=== PATIENT | female | born 1965 | race Caucasian/White ===

== ENCOUNTER 2016-07-21 20:21 | Inpatient (IN) | payer BC ==
[~2016-07-21] VITALS: Ht 152.4 cm; Wt 75.9 kg
[~2016-07-21 20:21] MED LIST: CALCCHW PO; CLIN1GEL29 TD; FEXO1TAB46 PO; MINO100C22 PO
[2016-07-21] MEDS ORDERED: ONDANSETRON INJ 2 MG/ML 2 ML VIAL IV STA (22:33)
[2016-07-21] MEDS ORDERED: PIPERACILLIN/TAZOBACTAM 4.5 GM/100ML D5W IV STA (22:33)
[2016-07-21] MEDS ORDERED: SODIUM CHLORIDE 0.9% 1000ML 1,000 ML IV STA ×2 (22:33)
[2016-07-21] MEDS ORDERED: ACETAMINOPHEN 500 MG TAB PO STA (22:33)
[2016-07-21] MEDS ORDERED: KETOROLAC TROMETHAMINE 30 MG/ML VIAL IV STA (22:33)
[2016-07-21] MEDS ORDERED: CEFTRIAXONE SOD INJ 2,000 MG in DEXTROSE 5% 50ML 50 ML IV STA (22:40)
[2016-07-21] MEDS ORDERED: NITR100C6 PO (23:04)
[2016-07-21 23:06] LABS: BASO % 0.2 %; BASO ABS # 0.03 K/uL (0-0.2); COMPLETE YES; EOS % 0.1 %; HEMATOCRIT 35.1 % (37-47); IG% 0.3 %; LYMPH % 10.4 %; LYMPH ABS # 1.58 K/uL (1.2-3.4); MEAN CELL VOLUME 85.2 fL (80-100); MEAN CORPUSCULAR HEMOGLOBIN 29.9 pg (25-34); MEAN PLATELET VOLUME 8.5 fL (7.4-10.4); MONO % 9.6 %; NEUT % 79.4 %; PLATELET COUNT 240 K/uL (130-400); RED BLOOD COUNT 4.12 M/uL (4.2-5.4); WHITE BLOOD COUNT 15.17 K/uL (4.8-10.8)
[2016-07-21 23:25] LABS: URINE APPEARANCE CLEAR (CLEAR); URINE BILIRUBIN NEG (NEG); URINE COLOR DK YELLOW; URINE EPITHELIAL CELL AUTO >30 /lpf (0-5); URINE NITRITE NEG (NEG); URINE PH 5.5 (4.5-7.5); URINE SPECIFIC GRAVITY 1.019 (1.000-1.030); UROBILINOGEN NEG (NEG); ZZUR CULT IF INDIC CLEAN CATCH YES
[2016-07-21 23:25] LABS: BUN/CREATININE RATIO 16.4 (10-20); CALCIUM 8.8 mg/dl (8.5-10.1); CREATININE 0.8 mg/dl (0.60-1.20); POTASSIUM 3.8 mmol/L (3.5-5.1)
[2016-07-21 23:27] LABS: MANUAL MICROSCOPIC REQUIRED? NO; REVIEW REQ? YES
[2016-07-21 23:28] LABS: ALB/GLOB RATIO 0.8 (0.9-2)
--- NOTE | 2016-07-21 23:34 | EMERGENCY ROOM VISIT NOTE ---
History Report prepared by Hesham: Madan Yang Under the Supervision of: Dr. Elier Benavides M.D. First contact with patient: 22:26 Chief Complaint: URINARY SYMPTOMS Stated Complaint: UTI SINCE 07/11, FEVER, CHILLS, BACKACHE Nursing Triage Summary: uti since june recently switched her antibiotic. now c/o chills and fever and back pain History of Present Illness The patient is a 51 year old female who presents to the Emergency Room with complaints of worsening urinary symptoms starting 07/11. The patient states that on the she had oral surgery, and the next day she was having increased urination and some pressure. She then started drinking cranberry juice, and the next day there was still more pressure, and she took some Azo pills. The patient states that she took some Cipro on 07/13, and on 07/15 she had pain in her abdomen and her back and a fever. She states that she went to urgent care, and they put her on Bactrim. She states that two nights ago she was sweating and had chills. She got a call yesterday morning form urgent care, and they told her that her microbe was resistant to Bactrim, so she was switched to a different antibiotic (Macrobid). The patient additionally states that she has cloudy urine, and she was shaking earlier today. She additionally states that she got up to do something, and she had to lay down due to being tired. She states that she has a fever, lower back pain, and nausea. She denies any vomiting. Source of History: patient Onset: 07/11 Position: other (Global) Quality: other (Urinary Symptoms) Timing: worsening Associated Symptoms: + abdominal pain, + back pain, + chills, + fevers, + nausea, No vomiting Review of Systems See HPI for pertinent positives & negatives. A total of 10 systems reviewed and were otherwise negative. Past Medical & Surgical Surgical Problems: (1) H/O tooth extraction Family History Cancer Social History Smoking Status: Never Smoker Housing Status: lives with family Occupation Status: employed Current/Historical Medications Scheduled Calcium Carbonate-Vitamin D W/ (Caltrate 600+D Plus), 1 CHW PO BID Fexofenadine Hcl (Emily), 180 MG PO DAILY Nitrofurantoin Monohyd Macro (Nitrofurantoin Monohydrat), 100 MG PO BID Allergies Coded Allergies: No Known Allergies (Verified , 06/08/02) Physical Exam Vital Signs Date Time Temp Pulse Resp B/P Pulse Ox O2 Delivery O2 Flow Rate FiO2 07/21/16 23:12 72 20 119/72 07/21/16 23:05 37.7 62 18 119/72 97 Room Air 07/21/16 20:35 38.6 79 18 120/73 99 Room Air Physical Exam GENERAL: Patient is in no acute distress. HEENT: No acute trauma, normocephalic atraumatic, mucous membranes moist, no nasal congestion, no scleral icterus. NECK: No stridor, no adenopathy, no meningismus, trachea is midline. LUNGS: Clear to auscultation bilaterally, no wheeze, no rhonchi, breath sounds equal. HEART: Without murmurs gallops or rubs, regular rate and rhythm. ABDOMEN: Soft, nontender, bowel sounds positive, no hernias, no peritonitis. BACK: Left more so than right flank discomfort with percussion. EXTREMITIES: No cyanosis or edema, full range of motion of all the joints without pain or difficulty, no signs for acute trauma. NEUROLOGIC: Oriented x 3, no acute motor or sensory deficits, no focal weakness. SKIN: No rash, no jaundice, no diaphoresis. Medical Decision & Procedures ER Provider Diagnostic Interpretation: US results as stated below per my review and radiologist interpretation: US RENAL: No hydronephrosis; bilateral ureteral jets noted. Nonspecific debris urinary bladder. Cholelithiasis. Radiologist: Corwin Bright MD Laboratory Results 07/21/16 22:54 Red Blood Count 4.12, Mean Corpuscular Volume 85.2, Mean Corpuscular Hemoglobin 29.9, Mean Corpuscular Hemoglobin Concent 35.0, Mean Platelet Volume 8.5, Neutrophils (%) (Auto) 79.4, Lymphocytes (%) (Auto) 10.4, Monocytes (%) (Auto) 9.6, Eosinophils (%) (Auto) 0.1, Basophils (%) (Auto) 0.2, Neutrophils # (Auto) 12.04, Lymphocytes # (Auto) 1.58, Monocytes # (Auto) 1.46, Eosinophils # (Auto) 0.02, Basophils # (Auto) 0.03 07/21/16 22:54 Test 07/21/16 22:50 07/21/16 22:54 Urine Color DK YELLOW Urine Appearance CLEAR (CLEAR) Urine pH 5.5 (4.5-7.5) Urine Specific [place] 1.019 (1.000-1.030) Urine Protein 2+ (NEG) Urine Glucose (UA) NEG (NEG) Urine Ketones 1+ (NEG) Urine Occult Blood 2+ (NEG) Urine Nitrite NEG (NEG) Urine Bilirubin NEG (NEG) Urine Urobilinogen NEG (NEG) Urine Leukocyte Esterase MODERATE (NEG) Urine WBC (Auto) >30 /hpf (0-5) Urine RBC (Auto) 10-30 /hpf (0-4) Urine Hyaline Casts (Auto) 10-30 /lpf (0-5) Urine Epithelial Cells (Auto) >30 /lpf (0-5) Urine Bacteria (Auto) NEG (NEG) Urine Renal Epithelial Cells /lpf (0-5) White Blood Count 15.17 K/uL (4.8-10.8) Red Blood Count 4.12 M/uL (4.2-5.4) Hemoglobin 12.3 g/dL (12.0-16.0) Hematocrit 35.1 % (37-47) Mean Corpuscular Volume 85.2 fL (80-100) Mean Corpuscular Hemoglobin 29.9 pg (25-34) Mean Corpuscular Hemoglobin Concent 35.0 g/dl (32-36) Platelet Count 240 K/uL (130-400) Mean Platelet Volume 8.5 fL (7.4-10.4) Neutrophils (%) (Auto) 79.4 % Lymphocytes (%) (Auto) 10.4 % Monocytes (%) (Auto) 9.6 % Eosinophils (%) (Auto) 0.1 % Basophils (%) (Auto) 0.2 % Neutrophils # (Auto) 12.04 K/uL (1.4-6.5) Lymphocytes # (Auto) 1.58 K/uL (1.2-3.4) Monocytes # (Auto) 1.46 K/uL (0.11-0.59) Eosinophils # (Auto) 0.02 K/uL (0-0.5) Basophils # (Auto) 0.03 K/uL (0-0.2) RDW Standard Deviation 36.7 fL (36.4-46.3) RDW Coefficient of Variation 11.8 % (11.5-14.5) Immature Granulocyte % (Auto) 0.3 % Immature Granulocyte # (Auto) 0.04 K/uL (0.00-0.02) Anion Gap 8.0 mmol/L (3-11) Est Creatinine Clear Calc Drug Dose 76.2 ml/min Estimated GFR () 97.6 Estimated GFR (Non- 84.2 BUN/Creatinine Ratio 16.4 (10-20) Lactic Acid Level 0.8 mmol/L (0.4-2.0) Calcium Level 8.8 mg/dl (8.5-10.1) Total Bilirubin 0.5 mg/dl (0.2-1) Aspartate Amino Transf (AST/SGOT) 37 U/L (15-37) Alanine Aminotransferase (ALT/SGPT) 45 U/L (12-78) Alkaline Phosphatase 109 U/L (45-117) Total Protein 6.9 gm/dl (6.4-8.2) Albumin 3.1 gm/dl (3.4-5.0) Globulin 3.8 gm/dl (2.5-4.0) Albumin/Globulin Ratio 0.8 (0.9-2) Laboratory results reviewed by me. Culture results collected 07/16 and resulted 07/18: Organism: Escherichia Coli (A) Ampicillin Resistant Ampicillin/Sulbactam Resistant Cefepime Susceptible Ceftriaxone Susceptible Ciprofloxacin Resistant Gentamicin Susceptible Levofloxacin Resistant Nitrofurantoin Susceptible Piperacillin Tazobactam Resistant Trimeth-Sulfamethoxazole Resistant Medications Administered Medications (Trade) Dose Ordered Sig/Jose Route Start Time Stop Time Status Last Admin Dose Admin Ondansetron HCl 4 mg 4 mg NOW STAT IV 07/21/16 22:33 07/21/16 22:37 DC 07/21/16 23:03 4 MG Sodium Chloride 1,000 ml @ 999 mls/hr Q1H1M STAT IV 07/21/16 22:33 07/21/16 23:33 DC 07/21/16 23:04 999 MLS/HR Sodium Chloride (Nss 1000ml) 1,000 ml @ 200 mls/hr Q5H STAT IV 07/21/16 22:33 07/22/16 03:32 07/21/16 23:04 200 MLS/HR Ketorolac Tromethamine (Toradol Inj) 30 mg NOW STAT IV 07/21/16 22:33 07/21/16 22:37 DC 07/21/16 23:04 30 MG Acetaminophen 1000 mg 1,000 mg NOW STAT PO 07/21/16 22:33 07/21/16 22:37 DC 07/21/16 23:03 1,000 MG Ceftriaxone Sodium/Dextrose (Rocephin Inj/D5 50ml) 70 ml @ 100 mls/hr ONE STAT IV 07/21/16 22:40 07/21/16 23:21 DC 07/21/16 23:04 100 MLS/HR ED Course 2226: The patient was evaluated in room C10. A complete history and physical exam was performed. 2233: Tylenol Tab 1000mg PO, Toradol Inj 30mg IV, Sodium Chloride 1000 ml @ 200 mls/hr IV, Sodium Chloride 1000 ml @ 999 mls/hr IV, Zofran Inj 4mg IV 2240: Ceftriaxone Sodium 2000mg/ Dextrose 70 ml @ 100mls/hr IV 0011: I discussed the patient's case with Dr. Gerard. He is going to evaluate the patient for further treatment. 0018: I reevaluated the patient, and I discussed the treatment plan. Medical Decision The patient is a 51 year old female who presents to the ED with complaints of urinary symptoms. Differential diagnoses considered include pyelonephritis, failed outpatient treatment, renal stone, dehydration, electrolyte imbalance, renal failure, pneumonia, diverticulitis. There is a moderate leukocytosis which would be consistent with infection. No concerning anemia. No significant electrolyte abnormality or kidney failure. There is no hepatitis. Urinalysis does show evidence for infection, urine culture is pending. Lactic acid level is not elevated making sepsis less likely. Renal ultrasound shows healthy kidneys, no hydronephrosis. There was some debris seen in the bladder. I reviewed the patient's urine culture results from last week, she had a fairly resistant organism (E Coli) by the sensitivity results. The patient received IV saline, IV Zofran, IV Toradol and IV ceftriaxone. She is doing well. She was given oral Tylenol for her fever. The patient requires admission/observation. She has resistant pyelonephritis and has failed outpatient treatment. She has been on 3 different antibiotics. I spoke to the patient and case management. The on-call hospitalist was consulted. Consults Time Called: [id number] Consulting Physician: Dr. Adhikari Returned Call: [phone] I discussed the patient's case with Dr. Gerard. He is going to evaluate the patient for further treatment. Impression Primary Impression: Pyelonephritis Additional Impression: Failure of outpatient treatment Scribe Attestation The scribe's documentation has been prepared under my direction and personally reviewed by me in its entirety. I confirm that the note above accurately reflects all work, treatment, procedures, and medical decision making performed by me. Departure Information Dispostion Being Evaluated By Hospitalist Referrals Theo Bowling M.D. (PCP) Patient Instructions [facility] Problem Qualifiers
[2016-07-22] VITALS (8 sets, daily range): BP systolic 92–137; BP diastolic 60–77; PULSE 58–87; TEMP 36.8–39.4; O2SAT 95–98; Ht 152.4 cm; Wt 75.9 kg
[2016-07-22] MEDS ORDERED: ZOLPIDEM TARTRATE 5 MG TAB PO PRN (00:30)
[2016-07-22] MEDS ORDERED: ONDANSETRON INJ 2 MG/ML 2 ML VIAL IV PRN (00:30)
[2016-07-22] MEDS ORDERED: PIPERACILLIN/TAZOBACTAM 4.5 GM/100ML D5W ONE (01:51)
[2016-07-22] MEDS ORDERED: NSS+KCL 20 MEQ 1000ML ONE (01:52)
[2016-07-22] MEDS ORDERED: TRAMADOL HCL 50 MG TAB ONE (02:05)
[2016-07-22] MEDS ORDERED: MoRPHine SULFATE 4 MG/ML 1 ML CARP\\VIAL IV PRN (03:30)
[2016-07-22] MEDS ORDERED: HYDROCODONE/ACETAMOPHEN 5/325MG TAB PO PRN (03:30)
[2016-07-22] MEDS ORDERED: TRAMADOL HCL 50 MG TAB PO PRN (03:30)
[2016-07-22] MEDS ORDERED: MoRPHine SULFATE 2 MG/ML CARP IV PRN (03:30)
--- NOTE | 2016-07-22 05:01 | History and Physical ---
History & Physical Date & Time of Service: Jul 22, 2016 at 04:43. The patient was admitted on July 21, 2016. Chief Complaint: Failure Of Op Treatment, Pyelonephritis Primary Care Physician: Theo Bowling M.D. History of Present Illness Source: patient, friend The patient is a 51-year-old female who underwent uneventful oral surgery on July 10. However, the next day she began to have increased urination and bladder pressure. She initially tried cranberry juice, and then the next day [id number] Azo pills. She then started Cipro on July 13, and on July 15 developed pain in her abdomen and back, and a fever. She then went to see urgent care, was started on Bactrim, and then received a call yesterday morning that the bacteria was resistant to Bactrim and she was started on Macrobid. She reports that today her urine has become more cloudy, developed shakes earlier in the day, and per her friend became more lethargic and much more fatigued than usual. Because of worsening symptoms, she presents emergency department for assessment, is considered as a failure of outpatient treatment, and was then referred for evaluation for admission. Family History Cancer Social History Smoking Status: Never Smoker Smokeless Tobacco Use: No Alcohol Use: none Drug Use: none Marital Status: single Housing status: lives alone Occupational Status: employed Multi-Drug Resistant Organisms History of MDRO: No Allergies Coded Allergies: No Known Allergies (Verified , 06/08/02) Home Medications Scheduled Calcium Carbonate-Vitamin D W/ (Caltrate 600+D Plus), 1 CHW PO BID Fexofenadine Hcl (Emily), 180 MG PO DAILY Nitrofurantoin Monohyd Macro (Nitrofurantoin Monohydrat), 100 MG PO BID Review of Systems The patient denies chest pain, palpitations, shortness of breath, cough, lower extremity swelling, vision change, hearing change, sore throat, weight change, fatigue, nausea, vomiting, abdominal pain, pelvic pain, blood in urine or stool , lightheadedness, dizziness, headache, memory loss, rash, abnormal bruising or bleeding, imbalance, focal or generalized weakness, numbness or tingling in arms or legs, arthralgias or myalgias, neck pain, night sweats, or allergy symptoms. The review of systems is otherwise negative other than for that already noted above, and at least 10 systems have been reviewed. Physical Exam Vital Signs Date Time Temp Pulse Resp B/P Pulse Ox O2 Delivery O2 Flow Rate FiO2 07/22/16 03:25 36.8 58 16 93/61 97 Room Air 07/22/16 02:12 37.7 72 20 119/72 97 07/21/16 23:12 72 20 119/72 07/21/16 23:05 37.7 62 18 119/72 97 Room Air 07/21/16 20:35 38.6 79 18 120/73 99 Room Air The patient is awake, well-developed and adequately nourished, alert and oriented 3, normocephalic and atraumatic, lying in bed and in no acute distress. HEENT--PERRL, EOMI, mucous membranes and oropharynx dry. Neck--supple, no JVD or bruits, thyroid normal, trachea midline, no adenopathy. Heart--normal S1 and S2, no extra beats, no murmurs, rubs or gallops. Lungs--clear bilaterally with good air movement, no respiratory distress, no accessory muscle use. Abdomen--normal bowel sounds and soft, nontender and nondistended, no hernias or masses, no organomegaly. Extremities--no cyanosis, clubbing or edema. There are good distal pulses b/l. Dermatologic--normal skin turgor, normal color, warm and dry, no abnormal lymph nodes, no rash. Neurologic--cranial nerves II through XII grossly intact, motor and sensory examination normal. Rheumatologic--normal range of motion, nontender, muscles and joints. Psychiatric--normal affect. Diagnostics Laboratory Results Results Past 24 Hours Test 07/21/16 22:50 07/21/16 22:54 Range/Units Urine Color DK YELLOW Urine Appearance CLEAR CLEAR Urine pH 5.5 4.5-7.5 Urine Specific [place] 1.019 1.000-1.030 Urine Protein 2+ NEG Urine Glucose (UA) NEG NEG Urine Ketones 1+ NEG Urine Occult Blood 2+ NEG Urine Nitrite NEG NEG Urine Bilirubin NEG NEG Urine Urobilinogen NEG NEG Urine Leukocyte Esterase MODERATE NEG Urine WBC (Auto) >30 0-5 /hpf Urine RBC (Auto) 10-30 0-4 /hpf Urine Hyaline Casts (Auto) 10-30 0-5 /lpf Urine Epithelial Cells (Auto) >30 0-5 /lpf Urine Bacteria (Auto) NEG NEG Urine Renal Epithelial Cells 0-5 /lpf White Blood Count 15.17 4.8-10.8 K/uL Red Blood Count 4.12 4.2-5.4 M/uL Hemoglobin 12.3 12.0-16.0 g/dL Hematocrit 35.1 37-47 % Mean Corpuscular Volume 85.2 80-100 fL Mean Corpuscular Hemoglobin 29.9 25-34 pg Mean Corpuscular Hemoglobin Concent 35.0 32-36 g/dl Platelet Count 240 130-400 K/uL Mean Platelet Volume 8.5 7.4-10.4 fL Neutrophils (%) (Auto) 79.4 % Lymphocytes (%) (Auto) 10.4 % Monocytes (%) (Auto) 9.6 % Eosinophils (%) (Auto) 0.1 % Basophils (%) (Auto) 0.2 % Neutrophils # (Auto) 12.04 1.4-6.5 K/uL Lymphocytes # (Auto) 1.58 1.2-3.4 K/uL Monocytes # (Auto) 1.46 0.11-0.59 K/uL Eosinophils # (Auto) 0.02 0-0.5 K/uL Basophils # (Auto) 0.03 0-0.2 K/uL RDW Standard Deviation 36.7 36.4-46.3 fL RDW Coefficient of Variation 11.8 11.5-14.5 % Immature Granulocyte % (Auto) 0.3 % Immature Granulocyte # (Auto) 0.04 0.00-0.02 K/uL Sodium Level 138 136-145 mmol/L Potassium Level 3.8 3.5-5.1 mmol/L Chloride Level 103 98-107 mmol/L Carbon Dioxide Level 27 21-32 mmol/L Anion Gap 8.0 3-11 mmol/L Blood Urea Nitrogen 13 7-18 mg/dl Creatinine 0.80 0.60-1.20 mg/dl Est Creatinine Clear Calc Drug Dose 76.2 ml/min Estimated GFR () 97.6 Estimated GFR (Non- 84.2 BUN/Creatinine Ratio 16.4 10-20 Random Glucose 132 70-99 mg/dl Lactic Acid Level 0.8 0.4-2.0 mmol/L Calcium Level 8.8 8.5-10.1 mg/dl Total Bilirubin 0.5 0.2-1 mg/dl Aspartate Amino Transf (AST/SGOT) 37 15-37 U/L Alanine Aminotransferase (ALT/SGPT) 45 12-78 U/L Alkaline Phosphatase 109 45-117 U/L Total Protein 6.9 6.4-8.2 gm/dl Albumin 3.1 3.4-5.0 gm/dl Globulin 3.8 2.5-4.0 gm/dl Albumin/Globulin Ratio 0.8 0.9-2 Microbiology Results 07/21/16 Urine Culture, Received Pending Impression Assessment and Plan Escherichia coli pyelonephritis/failure of outpatient treatment--the patient will be admitted to the medical floor. She has been started on ceftriaxone in the emergency department, and this will be continued at 1 g IV daily. Continue rehydration but change to normal saline with KCl 20 mEq at 125 ML's per hour. The bacteria is resistant to: Ampicillin, Unasyn, Cipro, levofloxacin, Zosyn and Bactrim. The bacteria is sensitive to: Cefepime, ceftriaxone, gentamicin and nitrofurantoin. Suspect she may ultimately be able to be discharged on cefuroxime 250 mg by mouth twice a day. Seasonal allergy--continue fexofenadine 180 mg by mouth daily. Level of Care Med/Surg Advanced Directives Existing Advance Directive: No Existing Living Will: No Existing Power of Psychologist Counseling: No Resuscitation Status FULL RESUSCITATION VTE Prophylaxis VTE Risk Assessment Done? Y/N: Yes Risk Level: Moderate Given or contraindicated: SCD's Social Service Consult None Apply
[2016-07-22] MEDS: HYDROCODONE/ACETAMOPHEN 5/325MG TAB PO PRN ×3 (05:51→09:13)
--- NOTE | 2016-07-22 06:35 | DIAGNOSTIC IMAGING REPORT ---
EXAMINATION: RENAL ULTRASOUND CLINICAL HISTORY: FLANK PAIN COMPARISON STUDY: None FINDINGS: The right kidney measures 11.3 cm. The left kidney measures 14.4 cm. There is no evidence of hydronephrosis. There is a prominent column of Jonny on the left. There is equivocal minimal debris within the bladder. Bilateral ureteral jets were visualized. Incidental note is made of cholelithiasis. IMPRESSION : 1. Cholelithiasis 2. No renal masses identified. No evidence of hydronephrosis. 3. Minimal debris within the bladder Electronically signed by: Tao Coreas M.D. 07/22/2016 6:34 AM Dictated Date/Time: 07/22/2016 6:32 AM
[2016-07-22] MEDS: FEXOFENADINE HCL 180 MG TAB PO SCH (09:11)
[2016-07-22] MEDS: NSS + 20MEQ KCL 1000ML 1,000 ML IV SCH ×3 (11:41→19:53)
--- NOTE | 2016-07-22 12:31 | Hospitalist Progress Note ---
Hospitalist Progress Note Date of Service Jul 22, 2016. Subjective Pt evaluation today including: conversation w/ patient, physical exam, chart review, lab review, review of studies, review of inpatient medication list Voiding: no voiding problems, no incontinence Patient states she is feeling better since admission. +bladder fullness. + bilateral flank pain, L>R. +nausea. Patient denies any fever, chills, sweats, lightheadedness, dizziness, vision changes, CP, palpitations, edema, SOB, wheezing, cough, abdominal pain, vomiting, diarrhea, melena, numbness/tingling, weakness, muscle/joint pain, anxiety/depression, active bleeding, or new skin discoloration/changes. Medications Current Inpatient Medications Medications (Trade) Dose Ordered Sig/Jose Route Start Time Stop Time Status Last Admin Dose Admin Acetaminophen (Tylenol Tab) 650 mg Q4H PRN PO 07/22/16 00:30 08/21/16 00:29 Zolpidem Tartrate (Ambien Tab) 5 mg HSZ PRN PO 07/22/16 00:30 08/21/16 00:29 Fexofenadine HCl (Emily Tab) 180 mg DAILY PO 07/22/16 09:00 08/21/16 08:59 07/22/16 09:11 180 MG Ondansetron HCl 4 mg 4 mg Q6H PRN IV 07/22/16 00:30 08/21/16 00:29 Potassium Chloride/Sodium Chloride 1,000 ml @ 100 mls/hr Q10H IV 07/22/16 05:00 08/21/16 04:59 07/22/16 11:41 100 MLS/HR Ceftriaxone Sodium/Dextrose (Rocephin Inj/ Dextrose Add-[place] 50ML) 50 ml @ 100 mls/hr Q24H IV 07/22/16 23:00 07/31/16 22:59 Acetaminophen/ Hydrocodone Bitart ([place] 5/325 Tab) 1 tab Q6H PRN PO 07/22/16 03:30 08/05/16 03:29 07/22/16 09:13 1 TAB Acetaminophen/ Hydrocodone Bitart ([place] 5/325 Tab) 2 tab Q6H PRN PO 07/22/16 03:30 08/05/16 03:29 Morphine Sulfate (MoRPHine SULFATE INJ) 2 mg Q2H PRN IV 07/22/16 03:30 08/05/16 03:29 Morphine Sulfate (MoRPHine SULFATE INJ) 4 mg Q2H PRN IV 07/22/16 03:30 08/05/16 03:29 Tramadol HCl ([place] Tab) 50 mg Q4H PRN PO 07/22/16 03:30 08/21/16 03:29 Tramadol HCl (Ultram Tab) 100 mg Q4H PRN PO 07/22/16 03:30 08/21/16 03:29 Objective Vital Signs Date Time Temp Pulse Resp B/P Pulse Ox O2 Delivery O2 Flow Rate FiO2 07/22/16 11:13 96 Room Air 07/22/16 10:30 Room Air 07/22/16 07:55 37.0 65 14 92/60 96 Room Air 07/22/16 03:25 36.8 58 16 93/61 97 Room Air 07/22/16 02:12 37.7 72 20 119/72 97 07/21/16 23:12 72 20 119/72 07/21/16 23:05 37.7 62 18 119/72 97 Room Air 07/21/16 20:35 38.6 79 18 120/73 99 Room Air Physical Exam General Appearance: no apparent distress Eyes: normal inspection, PERRL ENT: hearing grossly normal Neck: supple Respiratory/Chest: lungs clear, no respiratory distress, no accessory muscle use Cardiovascular: regular rate, rhythm Abdomen: normal bowel sounds, soft, + tenderness (suprapubic ttp ) Extremities: no pedal edema, no calf tenderness Neurologic/Psychiatric: alert, normal mood/affect, oriented x 3 Skin: normal color, warm/dry, no rash Laboratory Results Last 24 Hours Test 07/21/16 22:50 07/21/16 22:54 Urine Color DK YELLOW Urine Appearance CLEAR Urine pH 5.5 Urine Specific [place] 1.019 Urine Protein 2+ Urine Glucose (UA) NEG Urine Ketones 1+ Urine Occult Blood 2+ Urine Nitrite NEG Urine Bilirubin NEG Urine Urobilinogen NEG Urine Leukocyte Esterase MODERATE Urine WBC (Auto) >30 /hpf Urine RBC (Auto) 10-30 /hpf Urine Hyaline Casts (Auto) 10-30 /lpf Urine Epithelial Cells (Auto) >30 /lpf Urine Bacteria (Auto) NEG Urine Renal Epithelial Cells /lpf White Blood Count 15.17 K/uL Red Blood Count 4.12 M/uL Hemoglobin 12.3 g/dL Hematocrit 35.1 % Mean Corpuscular Volume 85.2 fL Mean Corpuscular Hemoglobin 29.9 pg Mean Corpuscular Hemoglobin Concent 35.0 g/dl Platelet Count 240 K/uL Mean Platelet Volume 8.5 fL Neutrophils (%) (Auto) 79.4 % Lymphocytes (%) (Auto) 10.4 % Monocytes (%) (Auto) 9.6 % Eosinophils (%) (Auto) 0.1 % Basophils (%) (Auto) 0.2 % Neutrophils # (Auto) 12.04 K/uL Lymphocytes # (Auto) 1.58 K/uL Monocytes # (Auto) 1.46 K/uL Eosinophils # (Auto) 0.02 K/uL Basophils # (Auto) 0.03 K/uL RDW Standard Deviation 36.7 fL RDW Coefficient of Variation 11.8 % Immature Granulocyte % (Auto) 0.3 % Immature Granulocyte # (Auto) 0.04 K/uL Sodium Level 138 mmol/L Potassium Level 3.8 mmol/L Chloride Level 103 mmol/L Carbon Dioxide Level 27 mmol/L Anion Gap 8.0 mmol/L Blood Urea Nitrogen 13 mg/dl Creatinine 0.80 mg/dl Est Creatinine Clear Calc Drug Dose 76.2 ml/min Estimated GFR () 97.6 Estimated GFR (Non- 84.2 BUN/Creatinine Ratio 16.4 Random Glucose 132 mg/dl Lactic Acid Level 0.8 mmol/L Calcium Level 8.8 mg/dl Total Bilirubin 0.5 mg/dl Aspartate Amino Transf (AST/SGOT) 37 U/L Alanine Aminotransferase (ALT/SGPT) 45 U/L Alkaline Phosphatase 109 U/L Total Protein 6.9 gm/dl Albumin 3.1 gm/dl Globulin 3.8 gm/dl Albumin/Globulin Ratio 0.8 Assessment and Plan The patient is a 51-year-old female who underwent uneventful oral surgery on July 10. However, the next day she began to have increased urination and bladder pressure. She initially tried cranberry juice, and then the next day [id number] Azo pills. She then started Cipro on July 13, and on July 15 developed pain in her abdomen and back, and a fever. She then went to see urgent care, was started on Bactrim, and then received a call yesterday morning that the bacteria was resistant to Bactrim and she was started on Macrobid. She reports that today her urine has become more cloudy, developed shakes earlier in the day, and per her friend became more lethargic and much more fatigued than usual. Because of worsening symptoms, she presents emergency department for assessment, is considered as a failure of outpatient treatment, and was then referred for evaluation for admission. Escherichia coli pyelonephritis/failure of outpatient treatment: - Admit to med/surg - IV Rocephin. IV Zosyn x1 dose - Tramadol, [place], and Morphine PRN for pain control - IV NSS + 20 mEq KCL @ 125 ml/hr - U/A dirty, UCx pending -- Urgent care UCx: 1. Bacteria is resistant to: Ampicillin, Unasyn, Cipro, levofloxacin, Zosyn and Bactrim 2. Bacteria is sensitive to: Cefepime, ceftriaxone, gentamicin and nitrofurantoin - Renal US- Cholelithiasis. No renal masses identified. No evidence of hydronephrosis. Minimal debris within the bladder Seasonal allergy: Continue Fexofenadine 180 mg PO daily GI Prophylaxis: IV Zofran PRN DVT prophylaxis: Ambulation, TEDs and SCDs Code Status: LEVEL I, FULL Dispo: Discharge to home once medically stable. Hopefully w/in the next 1-2 days
[2016-07-22] MEDS: ACETAMINOPHEN 325 MG TAB PO PRN ×2 (15:26→21:11)
[2016-07-22] MEDS: CEFTRIAXONE SOD INJ 1 GM in DEXTROSE 5% ADD-VANTAGE 50ML 50 ML IV SCH (23:02)
[2016-07-23] MEDS: NSS + 20MEQ KCL 1000ML 1,000 ML IV SCH ×3 (03:55→20:08)
[2016-07-23] MEDS: ACETAMINOPHEN 325 MG TAB PO PRN ×3 (04:44→23:07)
[2016-07-23 07:39] VITALS: BP 114/81; PULSE 63; TEMP 37.1; O2SAT 93
[2016-07-23 07:46] LABS: BASO % 0.2 %; BASO ABS # 0.02 K/uL (0-0.2); COMPLETE YES; EOS % 0.8 %; HEMATOCRIT 33.5 % (37-47); IG% 0.2 %; LYMPH % 26.2 %; MEAN CELL VOLUME 87.5 fL (80-100); MEAN CORPUSCULAR HEMOGLOBIN 29.8 pg (25-34); MEAN PLATELET VOLUME 8.7 fL (7.4-10.4); NEUT % 64.6 %; PLATELET COUNT 269 K/uL (130-400); RED BLOOD COUNT 3.83 M/uL (4.2-5.4); WHITE BLOOD COUNT 8.79 K/uL (4.8-10.8)
[2016-07-23 08:18] LABS: BUN/CREATININE RATIO 12.8 (10-20); CALCIUM 8.9 mg/dl (8.5-10.1); CREATININE 0.74 mg/dl (0.60-1.20); MAGNESIUM 2.2 mg/dl (1.8-2.4); POTASSIUM 4.1 mmol/L (3.5-5.1)
[2016-07-23] MEDS: FEXOFENADINE HCL 180 MG TAB PO SCH (09:16)
[2016-07-23] MEDS ORDERED: TRAMADOL HCL 50 MG TAB PO PRN (10:45)
--- NOTE | 2016-07-23 12:50 | Hospitalist Progress Note ---
Hospitalist Progress Note Date of Service Jul 23, 2016. Subjective Pt evaluation today including: conversation w/ patient, physical exam, chart review, lab review, review of inpatient medication list Voiding: no voiding problems, no incontinence +bladder fullness. +bilateral flank pain- non-worsening; moderate control w/ Tylenol, [place] is making her feel very nauseous, Discussed trying Tramadol + Zofran for better pain control. She is eating and drinking OK. Patient denies any fever, chills, sweats, lightheadedness, dizziness, vision changes, CP, palpitations, edema, SOB, wheezing, cough, abdominal pain, nausea, vomiting, diarrhea, urinary symptoms, melena, numbness/tingling, weakness, muscle/joint pain, anxiety/depression, active bleeding, or new skin discoloration/changes. Medications Current Inpatient Medications Medications (Trade) Dose Ordered Sig/Jose Route Start Time Stop Time Status Last Admin Dose Admin Acetaminophen (Tylenol Tab) 650 mg Q4H PRN PO 07/22/16 00:30 08/21/16 00:29 07/23/16 09:18 650 MG Zolpidem Tartrate (Ambien Tab) 5 mg HSZ PRN PO 07/22/16 00:30 08/21/16 00:29 07/22/16 23:02 5 MG Fexofenadine HCl (Emily Tab) 180 mg DAILY PO 07/22/16 09:00 08/21/16 08:59 07/23/16 09:16 180 MG Ondansetron HCl 4 mg 4 mg Q6H PRN IV 07/22/16 00:30 08/21/16 00:29 07/22/16 13:52 4 MG Potassium Chloride/Sodium Chloride 1,000 ml @ 125 mls/hr Q8H IV 07/22/16 05:00 08/21/16 04:59 07/23/16 11:53 125 MLS/HR Ceftriaxone Sodium/Dextrose (Rocephin Inj/ Dextrose Add-[place] 50ML) 50 ml @ 100 mls/hr Q24H IV 07/22/16 23:00 07/31/16 22:59 07/22/16 23:02 100 MLS/HR Acetaminophen/ Hydrocodone Bitart ([place] 5/325 Tab) 1 tab Q6H PRN PO 07/22/16 03:30 08/05/16 03:29 07/22/16 09:13 1 TAB Acetaminophen/ Hydrocodone Bitart ([place] 5/325 Tab) 2 tab Q6H PRN PO 07/22/16 03:30 08/05/16 03:29 Morphine Sulfate (MoRPHine SULFATE INJ) 2 mg Q2H PRN IV 07/22/16 03:30 08/05/16 03:29 Morphine Sulfate (MoRPHine SULFATE INJ) 4 mg Q2H PRN IV 07/22/16 03:30 08/05/16 03:29 Tramadol HCl (Ultram Tab) 50 mg Q4H PRN PO 07/22/16 03:30 08/21/16 03:29 Tramadol HCl (Ultram Tab) 100 mg Q4H PRN PO 07/22/16 03:30 08/21/16 03:29 Objective Vital Signs Date Time Temp Pulse Resp B/P Pulse Ox O2 Delivery O2 Flow Rate FiO2 07/23/16 09:41 Room Air 07/23/16 07:39 37.1 63 17 114/81 93 Room Air 07/22/16 22:57 37.1 81 16 101/68 95 Room Air 07/22/16 20:00 Room Air 07/22/16 16:36 38.7 07/22/16 15:16 39.4 87 18 137/77 95 Room Air 07/22/16 13:32 37.2 Physical Exam General Appearance: no apparent distress Eyes: normal inspection, PERRL ENT: hearing grossly normal Neck: supple Respiratory/Chest: lungs clear, no respiratory distress, no accessory muscle use Cardiovascular: regular rate, rhythm Abdomen: normal bowel sounds, soft, + tenderness (suprapubic tenderness to palpation ), + pertinent finding (+CVA tenderness ) Extremities: no pedal edema, no calf tenderness Neurologic/Psychiatric: alert, normal mood/affect, oriented x 3 Skin: normal color, warm/dry, no rash Laboratory Results Last 24 Hours Test 07/23/16 07:35 White Blood Count 8.79 K/uL Red Blood Count 3.83 M/uL Hemoglobin 11.4 g/dL Hematocrit 33.5 % Mean Corpuscular Volume 87.5 fL Mean Corpuscular Hemoglobin 29.8 pg Mean Corpuscular Hemoglobin Concent 34.0 g/dl Platelet Count 269 K/uL Mean Platelet Volume 8.7 fL Neutrophils (%) (Auto) 64.6 % Lymphocytes (%) (Auto) 26.2 % Monocytes (%) (Auto) 8.0 % Eosinophils (%) (Auto) 0.8 % Basophils (%) (Auto) 0.2 % Neutrophils # (Auto) 5.68 K/uL Lymphocytes # (Auto) 2.30 K/uL Monocytes # (Auto) 0.70 K/uL Eosinophils # (Auto) 0.07 K/uL Basophils # (Auto) 0.02 K/uL RDW Standard Deviation 38.4 fL RDW Coefficient of Variation 12.0 % Immature Granulocyte % (Auto) 0.2 % Immature Granulocyte # (Auto) 0.02 K/uL Sodium Level 140 mmol/L Potassium Level 4.1 mmol/L Chloride Level 107 mmol/L Carbon Dioxide Level 27 mmol/L Anion Gap 6.0 mmol/L Blood Urea Nitrogen 10 mg/dl Creatinine 0.74 mg/dl Est Creatinine Clear Calc Drug Dose 80.0 ml/min Estimated GFR () 107.2 Estimated GFR (Non- 92.5 BUN/Creatinine Ratio 12.8 Random Glucose 88 mg/dl Calcium Level 8.9 mg/dl Magnesium Level 2.2 mg/dl Hepatitis C Antibody NEG Assessment and Plan The patient is a 51-year-old female who underwent uneventful oral surgery on July 10. However, the next day she began to have increased urination and bladder pressure. She initially tried cranberry juice, and then the next day [id number] Azo pills. She then started Cipro on July 13, and on July 15 developed pain in her abdomen and back, and a fever. She then went to see urgent care, was started on Bactrim, and then received a call yesterday morning that the bacteria was resistant to Bactrim and she was started on Macrobid. She reports that today her urine has become more cloudy, developed shakes earlier in the day, and per her friend became more lethargic and much more fatigued than usual. Because of worsening symptoms, she presents emergency department for assessment, is considered as a failure of outpatient treatment, and was then referred for evaluation for admission. Escherichia coli pyelonephritis/failure of outpatient treatment: - Admit to med/surg - IV Rocephin. IV Zosyn x1 dose - Tramadol, [place], and Morphine PRN for pain control - IV NSS + 20 mEq KCL @ 125 ml/hr - U/A dirty, UCx pending -- Urgent care UCx: 1. Bacteria is resistant to: Ampicillin, Unasyn, Cipro, levofloxacin, Zosyn and Bactrim 2. Bacteria is sensitive to: Cefepime, ceftriaxone, gentamicin and nitrofurantoin - Renal US- Cholelithiasis. No renal masses identified. No evidence of hydronephrosis. Minimal debris within the bladder Seasonal allergy: Continue Fexofenadine 180 mg PO daily GI Prophylaxis: IV Zofran PRN DVT prophylaxis: Ambulation, TEDs and SCDs Code Status: LEVEL I, FULL Dispo: - Discharge to home once medically stable. - Hopefully w/in the next 1-2 days; continue IV antibiotic today due to spiking fevers, hopeful transition to PO tomorrow, w/ discharge tomorrow or Wednesday
[2016-07-23] MEDS: TRAMADOL HCL 50 MG TAB PO PRN ×2 (14:43→15:46)
[2016-07-23 15:18] VITALS: BP 123/86; PULSE 49; TEMP 37; O2SAT 97
[2016-07-23 22:53] VITALS: BP 120/83; PULSE 66; TEMP 37.4; O2SAT 94
[2016-07-23] MEDS: CEFTRIAXONE SOD INJ 1 GM in DEXTROSE 5% ADD-VANTAGE 50ML 50 ML IV SCH (23:02)
[2016-07-24] MEDS: NSS + 20MEQ KCL 1000ML 1,000 ML IV SCH (03:40)
[2016-07-24 06:44] LABS: BASO % 0.6 %; BASO ABS # 0.05 K/uL (0-0.2); COMPLETE YES; HEMATOCRIT 31.9 % (37-47); IG% 0.3 %; LYMPH % 33.3 %; LYMPH ABS # 2.66 K/uL (1.2-3.4); MEAN CELL VOLUME 85.3 fL (80-100); MEAN CORPUSCULAR HEMOGLOBIN 29.7 pg (25-34); MEAN CORPUSCULAR HGB CONC 34.8 g/dl (32-36); MEAN PLATELET VOLUME 8.3 fL (7.4-10.4); NEUT % 56.8 %; PLATELET COUNT 267 K/uL (130-400); RED BLOOD COUNT 3.74 M/uL (4.2-5.4); WHITE BLOOD COUNT 7.98 K/uL (4.8-10.8)
[2016-07-24 06:58] VITALS: BP 143/90; PULSE 61; TEMP 37; O2SAT 96
[2016-07-24] MEDS: TRAMADOL HCL 50 MG TAB PO PRN ×3 (07:01→19:23)
[2016-07-24 07:28] LABS: BUN/CREATININE RATIO 12.8 (10-20); CALCIUM 8.8 mg/dl (8.5-10.1); CREATININE 0.64 mg/dl (0.60-1.20); MAGNESIUM 2.1 mg/dl (1.8-2.4); POTASSIUM 4.1 mmol/L (3.5-5.1)
[2016-07-24] MEDS: FEXOFENADINE HCL 180 MG TAB PO SCH (10:02)
[2016-07-24] MEDS ORDERED: CEFUROXIME AXETIL 250 MG TAB PO ONE (10:15)
--- NOTE | 2016-07-24 11:00 | Hospitalist Progress Note ---
Hospitalist Progress Note Date of Service Jul 24, 2016. Subjective Pt evaluation today including: conversation w/ patient, physical exam, chart review, lab review, review of inpatient medication list Voiding: no voiding problems, no incontinence Patient states she is feeling 55% better. Bladder fullness has resolved. Bilateral flank pain continues to improve, increased w/ movement- controlled well with Tramadol. She is eating and drinking OK. Patient denies any fever, chills, sweats, lightheadedness, dizziness, vision changes, CP, palpitations, edema, SOB, wheezing, cough, abdominal pain, nausea, vomiting, diarrhea, urinary symptoms, melena, numbness/tingling, weakness, muscle/joint pain, anxiety/depression, active bleeding, or new skin discoloration/changes. Medications Current Inpatient Medications Medications (Trade) Dose Ordered Sig/Jose Route Start Time Stop Time Status Last Admin Dose Admin Acetaminophen (Tylenol Tab) 650 mg Q4H PRN PO 07/22/16 00:30 08/21/16 00:29 07/23/16 23:07 650 MG Zolpidem Tartrate (Ambien Tab) 5 mg HSZ PRN PO 07/22/16 00:30 08/21/16 00:29 07/22/16 23:02 5 MG Fexofenadine HCl (Emily Tab) 180 mg DAILY PO 07/22/16 09:00 08/21/16 08:59 07/24/16 10:02 180 MG Ondansetron HCl (Zofran Inj) 4 mg Q6H PRN IV 07/22/16 00:30 08/21/16 00:29 07/22/16 13:52 4 MG Acetaminophen/ Hydrocodone Bitart ([place] 5/325 Tab) 1 tab Q6H PRN PO 07/22/16 03:30 08/05/16 03:29 07/22/16 09:13 1 TAB Acetaminophen/ Hydrocodone Bitart ([place] 5/325 Tab) 2 tab Q6H PRN PO 07/22/16 03:30 08/05/16 03:29 Morphine Sulfate (MoRPHine SULFATE INJ) 2 mg Q2H PRN IV 07/22/16 03:30 08/05/16 03:29 Morphine Sulfate (MoRPHine SULFATE INJ) 4 mg Q2H PRN IV 07/22/16 03:30 08/05/16 03:29 Tramadol HCl (Ultram Tab) 50 mg Q4H PRN PO 07/22/16 03:30 08/21/16 03:29 07/24/16 07:01 50 MG Tramadol HCl (Ultram Tab) 100 mg Q4H PRN PO 07/22/16 03:30 08/21/16 03:29 Cefuroxime Axetil (Ceftin Tab) 250 mg BID PO 07/24/16 21:00 08/01/16 20:59 Objective Vital Signs Date Time Temp Pulse Resp B/P Pulse Ox O2 Delivery O2 Flow Rate FiO2 07/24/16 07:38 Room Air 07/24/16 06:58 37.0 61 16 143/90 96 Room Air 07/23/16 22:53 37.4 66 16 120/83 94 Room Air 07/23/16 19:15 Room Air 07/23/16 15:18 37.0 49 18 123/86 97 Room Air Physical Exam General Appearance: no apparent distress Eyes: normal inspection, PERRL ENT: hearing grossly normal Neck: supple Respiratory/Chest: lungs clear, no respiratory distress, no accessory muscle use Cardiovascular: regular rate, rhythm Abdomen: normal bowel sounds, non tender, soft Extremities: no pedal edema, no calf tenderness Neurologic/Psychiatric: alert, normal mood/affect, oriented x 3 Skin: normal color, warm/dry, no rash Laboratory Results Last 24 Hours Test 07/24/16 06:25 White Blood Count 7.98 K/uL Red Blood Count 3.74 M/uL Hemoglobin 11.1 g/dL Hematocrit 31.9 % Mean Corpuscular Volume 85.3 fL Mean Corpuscular Hemoglobin 29.7 pg Mean Corpuscular Hemoglobin Concent 34.8 g/dl Platelet Count 267 K/uL Mean Platelet Volume 8.3 fL Neutrophils (%) (Auto) 56.8 % Lymphocytes (%) (Auto) 33.3 % Monocytes (%) (Auto) 7.0 % Eosinophils (%) (Auto) 2.0 % Basophils (%) (Auto) 0.6 % Neutrophils # (Auto) 4.53 K/uL Lymphocytes # (Auto) 2.66 K/uL Monocytes # (Auto) 0.56 K/uL Eosinophils # (Auto) 0.16 K/uL Basophils # (Auto) 0.05 K/uL RDW Standard Deviation 36.8 fL RDW Coefficient of Variation 11.7 % Immature Granulocyte % (Auto) 0.3 % Immature Granulocyte # (Auto) 0.02 K/uL Sodium Level 141 mmol/L Potassium Level 4.1 mmol/L Chloride Level 107 mmol/L Carbon Dioxide Level 28 mmol/L Anion Gap 6.0 mmol/L Blood Urea Nitrogen 8 mg/dl Creatinine 0.64 mg/dl Est Creatinine Clear Calc Drug Dose 92.5 ml/min Estimated GFR () 118.1 Estimated GFR (Non- 101.9 BUN/Creatinine Ratio 12.8 Random Glucose 83 mg/dl Calcium Level 8.8 mg/dl Magnesium Level 2.1 mg/dl Assessment and Plan The patient is a 51-year-old female who underwent uneventful oral surgery on July 10. However, the next day she began to have increased urination and bladder pressure. She initially tried cranberry juice, and then the next day [id number] Azo pills. She then started Cipro on July 13, and on July 15 developed pain in her abdomen and back, and a fever. She then went to see urgent care, was started on Bactrim, and then received a call yesterday morning that the bacteria was resistant to Bactrim and she was started on Macrobid. She reports that today her urine has become more cloudy, developed shakes earlier in the day, and per her friend became more lethargic and much more fatigued than usual. Because of worsening symptoms, she presents emergency department for assessment, is considered as a failure of outpatient treatment, and was then referred for evaluation for admission. Escherichia coli pyelonephritis/failure of outpatient treatment: - Admit to med/surg - IV Rocephin x2 doses. IV Zosyn x1 dose -- d/c'd IV antibiotics and started Ceftin 250 mg PO BID on 07/24 x10 days--> last day of treatment on 07/31 - Tramadol, [place], and Morphine PRN for pain control - Treated w/ IV NSS + 20 mEq KCL @ 125 ml/hr x7 bags - U/A dirty, UCx- 3 organisms all at low counts, likely normal avery -- Urgent care UCx: 1. Bacteria is resistant to: Ampicillin, Unasyn, Cipro, levofloxacin, Zosyn and Bactrim 2. Bacteria is sensitive to: Cefepime, ceftriaxone, gentamicin and nitrofurantoin - Renal US- Cholelithiasis. No renal masses identified. No evidence of hydronephrosis. Minimal debris within the bladder Seasonal allergy: Continue Fexofenadine 180 mg PO daily GI Prophylaxis: IV Zofran PRN DVT prophylaxis: Ambulation, TEDs and SCDs Code Status: LEVEL I, FULL Dispo: - Discharge to home once medically stable, hopefully tomorrow (07/25)
[2016-07-24] MEDS: ACETAMINOPHEN 325 MG TAB PO PRN ×2 (12:08→21:04)
[2016-07-24] MEDS ORDERED: NURSING VERBAL MED ORDER ONE (13:15)
[2016-07-24] MEDS: ONDANSETRON 4 MG TAB PO PRN (13:30)
[2016-07-24 15:17] VITALS: BP 123/81; PULSE 59; TEMP 37.1; O2SAT 94
[2016-07-24] MEDS: CEFUROXIME AXETIL 250 MG TAB PO SCH (21:04)
[2016-07-24 23:32] VITALS: BP 124/79; PULSE 59; TEMP 37.1; O2SAT 91
[2016-07-25] MEDS: ONDANSETRON 4 MG TAB PO PRN (05:56)
[2016-07-25] MEDS: ACETAMINOPHEN 325 MG TAB PO PRN (06:02)
[2016-07-25 07:43] VITALS: BP 144/86; PULSE 59; TEMP 36.9; O2SAT 94
[2016-07-25] MEDS ORDERED: ULT50X PO (09:27)
[2016-07-25] MEDS ORDERED: CFT250 PO (09:27)
[2016-07-25] MEDS: CEFUROXIME AXETIL 250 MG TAB PO SCH (09:30)
[2016-07-25] MEDS: FEXOFENADINE HCL 180 MG TAB PO SCH (09:30)
--- NOTE | 2016-07-25 09:30 | Discharge Instructions ---
Discharge Instructions Date of Service Jul 25, 2016. Admission Reason for Admission: Failure Of Op Treatment, Pyelonephritis Discharge Discharge Diagnosis / Problem: Escherichia coli pyelonephritis/failure of outpatient treatment Discharge Goals Goal(s): Decrease discomfort, Improve function, Increase independence, Improve disease control, Improve nutritional status, Learn about illness, Diagnostic testing, Therapeutic intervention, Prevent Disease Progression, Specific goals Activity Recommendations Activity Limitations: resume your previous activity Lifting Limitations: none Exercise/Sports Limitations: none May Resume Sexual Activity: when tolerated Shower/Bathe: no limitations . Instructions / Follow-Up Instructions / Follow-Up you have Escherichia coli pyelonephritis/failure of outpatient treatment your Renal US- Cholelithiasis need to follow up with pcp - you need to follow up with your primary care physician in 1 week, - take medication as instructed, never overdose or any misuse, or take with alcohol, because misuse of medicine may cause organ damage or , call your primary care physician if have questions of medicaitons. - call your primary care physician OR go to local emergency room if has any fever/chill, chest pain, shortness of breathing, nausea/vomiting/abdominal pain , facial droop/slurry speech/local weakness, or if has any questions. - fall precaution - diet as instructed - you need to follow up with your subspecialist - you should understand that it is important to follow up the above instruction , and "not following the above instruction" may cause delayed or missed care of your medical conditions which may cause permanent organ damage and even . Current Hospital Diet Patient's current hospital diet: Regular Diet Discharge Diet Recommended Diet: Regular Diet Pending Studies Studies pending at discharge: no Laboratory Results Meds Administered (Past 24Hrs) Medications (Trade) Dose Ordered Sig/Jose Route Start Time Stop Time Status Last Admin Dose Admin Cefuroxime Axetil (Ceftin Tab) 250 mg BID PO 07/24/16 21:00 08/01/16 20:59 07/24/16 21:04 250 MG Cefuroxime Axetil (Ceftin Tab) 250 mg 1015 ONCE PO 07/24/16 10:15 07/24/16 10:16 DC 07/24/16 10:50 250 MG Ondansetron HCl (Zofran Tab) 4 mg Q6H PRN PO 07/24/16 13:30 08/23/16 13:29 07/25/16 05:56 4 MG Medical Emergencies . Who to Call and When: Medical Emergencies: If at any time you feel your situation is an emergency, please call 911 immediately. . Non-Emergent Contact Non-Emergency issues call your: Primary Care Provider . . "Provider Documentation" section prepared by [facility]. VTE Core Measure Inpt VTE Proph given/why not?: SCD's
[2016-07-25] MEDS ORDERED: ZFR4 PO (10:08)
[2016-07-25 10:51] VITALS: BP 144/86; PULSE 59; TEMP 36.9; O2SAT 94
--- NOTE | 2016-07-25 10:56 | Discharge Summary ---
Discharge Summary Date of Service Jul 25, 2016. Discharge Summary Admission Date: Jul 22, 2016 at 00:24 Discharge Date: Jul 25, 2016 Discharge Disposition: Home Principal Diagnosis: Escherichia coli pyelonephritis/failure of outpatient treatment: Problems/Secondary Diagnoses: Cholelithiasis. Seasonal allergy Procedures: No Consultations: no Medication Reconciliation New Medications: Cefuroxime Axetil (Cefuroxime Axetil) 250 Mg Tab 250 MG PO BID for 11 Days, #22 TAB Ondansetron (Ondansetron HCl) 4 Mg Tab 4 MG PO Q6H PRN for NAUSEA for 3 Days, #10 TAB Tramadol HCl (Tramadol HCl) 50 Mg Tab 50 MG PO Q4H PRN for mild Pain (1) for 3 Days, #12 TAB Continued Medications: Calcium Carbonate-Vitamin D W/ (Caltrate 600+D Plus) 1 Chw Chw 1 CHW PO BID Fexofenadine Hcl (Emily) 180 Mg Tab 180 MG PO DAILY, TAB PATIENT STATED THAT SHE TAKES NEEDED Discontinued Medications: Nitrofurantoin Monohyd Macro (Nitrofurantoin Monohydrat) 100 Mg Cap 100 MG PO BID, #14 Discharge Exam Doing well, sitting up smiling, no more fever and chill, normal back pain eating drinking. Review of Systems: Constitutional: No chills, No fatigue, No fever, No problem reported, No sweats, No weakness, No weight loss Eyes: No diplopia, No discharge, No eye pain, No problem reported, No redness, No worsening of vision ENT: No dental problems, No hearing loss, No nasal symptoms, No problem reported, No sore throat, No tinnitus, No trouble swallowing, No unusual epistaxis Respiratory: No cough, No dyspnea at rest, No dyspnea on exertion, No hemoptysis, No problem reported, No shortness of breath, No sputum, No wheezing Cardiovascular: No PND, No chest pain, No claudication, No edema, No orthopnea, No palpitations, No problem reported Abdomen: No GI bleeding, No constipation, No diarrhea, No nausea, No pain, No problem reported, No vomiting Musculoskeletal: No calf pain, No joint pain, No muscle pain, No problem reported, No swelling Genitourinary - Female: No dysmenorrhea, No dysuria, No hematuria, No menorrhagia, No metrorrhagia, No , No problem reported, No rash, No urinary frequency, No urinary incontinence, No urinary retention, No urinary urgency, No vaginal bleeding, No vaginal discharge, No vaginal itching, No vulvodynia Neurologic: No balance problems, No memory loss, No numbness/tingling, No paralysis, No problem reported, No vertigo, No weakness Psychiatric: No anhedonism, No anxiety, No depression symptoms, No insomnia , No problem reported, No substance abuse Endocrine: No excessive thirst, No excessive urination, No fatigue, No problem reported Hematologic / Lymphatic: No abnormal bleeding/bruising, No clotting problems , No night sweats, No problem reported, No swollen lymph nodes Physical Exam: General Appearance: WD/WN, no apparent distress Eyes: normal inspection, PERRL ENT: normal ENT inspection, hearing grossly normal Neck: supple, no adenopathy Respiratory/Chest: chest non-tender, no respiratory distress, no accessory muscle use, + decreased breath sounds Cardiovascular: regular rate, rhythm, no edema, no gallop, no JVD Abdomen / GI: normal bowel sounds, non tender, soft, no organomegaly Extremities: normal inspection, no calf tenderness, normal capillary refill 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 However, the next day began to have increased urination and bladder pressure. initially tried cranberry juice, and then the next day [id number] Azo pills. She then started Cipro on July 13, and on July 15 developed pain in her abdomen and back, and a fever. then went to see urgent care, was started on Bactrim, and then received a call yesterday morning that the bacteria was resistant to Bactrim and she was started on Macrobid. She reports that on the day of admission her urine has become more cloudy, developed shakes earlier in the day, and per her friend became more lethargic and much more fatigued than usual. Because of worsening symptoms, she presented emergency department for assessment, was considered as a failure of outpatient treatment, and was then referred for evaluation for admission. Escherichia coli pyelonephritis/failure of outpatient treatment: Has been admitted to med/surg Has been on IV Rocephin x2 doses. IV Zosyn x1 dose -- d/c'd IV antibiotics and started Ceftin 250 mg PO BID on 07/24 x14 days--> last day of treatment on 07/07 - Tramadol, [place], and Morphine PRN for pain control - Has been Treated w/ IV NSS + 20 mEq KCL @ 125 ml/hr x7 bags - U/A dirty, UCx- 3 organisms all at low counts, likely normal avery -- Urgent care UCx: 1. Bacteria is resistant to: Ampicillin, Unasyn, Cipro, levofloxacin, Zosyn and Bactrim 2. Bacteria is sensitive to: Cefepime, ceftriaxone, gentamicin and nitrofurantoin Patient's general condition has been doing well, no more fever and chill, no more lower back pain, tolerate oral antibiotics, - Renal US- Cholelithiasis. No renal masses identified. No evidence of hydronephrosis. Minimal debris within the bladder Seasonal allergy: Continue Fexofenadine 180 mg PO daily GI Prophylaxis: IV Zofran PRN DVT prophylaxis: Ambulation, TEDs and SCDs Code Status: LEVEL I, FULL Dispo: - Discharge to home once medically stable, hopefully tomorrow (07/25) Instructions / Follow-Up you have Escherichia coli pyelonephritis/failure of outpatient treatment your Renal US- Cholelithiasis need to follow up with pcp - you need to follow up with your primary care physician in 1 week, - take medication as instructed, never overdose or any misuse, or take with alcohol, because misuse of medicine may cause organ damage or , call your primary care physician if have questions of medicaitons. - call your primary care physician OR go to local emergency room if has any fever/chill, chest pain, shortness of breathing, nausea/vomiting/abdominal pain , facial droop/slurry speech/local weakness, or if has any questions. - fall precaution - diet as instructed - you need to follow up with your subspecialist - you should understand that it is important to follow up the above instruction , and "not following the above instruction" may cause delayed or missed care of your medical conditions which may cause permanent organ damage and even . Total Time Spent: Less than 30 minutes This includes examination of the patient, discharge planning, medication reconciliation, and communication with other providers. Discharge Instructions Please refer to the electronic Patient Visit Report (Discharge Instructions) for additional information. Additional Copies To Theo Bowling M.D.
== END 2016-07-25 11:17 | disposition home or self-care (01) | DRG 690 ==
LOC: ENRESERVTM → ENRESERVDT → C.EDB 20:23 → C.MSN 07-22 00:24
PROVIDERS: ADMIT Hospitalist; ATTEND Hospitalist
DX: N12 Tubulo-interstitial nephritis, not specified as acute or chronic (principal); B96.20 Unspecified Escherichia coli [E. coli] as the cause of diseases classified elsewhere; Z16.24 Resistance to multiple antibiotics; R11.0 Nausea; T40.2X5A Adverse effect of other opioids, initial encounter; J30.2 Other seasonal allergic rhinitis; Z79.899 Other long term (current) drug therapy

== ENCOUNTER 2016-09-04 09:06 | Emergency (ER) | payer BC ==
[~2016-09-04] VITALS: Ht 152.4 cm; Wt 81.1 kg
[~2016-09-04 09:06] MED LIST changes: +CFT250 PO; -CLIN1GEL29 TD; -MINO100C22 PO; +ULT50X PO; +ZFR4 PO
[2016-09-04 09:12] VITALS: TEMP 36.4; Ht 152.4 cm; Wt 81.1 kg
[2016-09-04] MEDS ORDERED: ACETAMINOPHEN 500 MG TAB PO STA (09:33)
[2016-09-04 10:06] LABS: URINE APPEARANCE CLEAR (CLEAR); URINE BILIRUBIN NEG (NEG); URINE COLOR YELLOW; URINE NITRITE NEG (NEG); URINE SPECIFIC GRAVITY 1.008 (1.000-1.030); UROBILINOGEN NEG (NEG); ZZUR CULT IF INDIC CLEAN CATCH NO
[2016-09-04 10:10] LABS: MANUAL MICROSCOPIC REQUIRED? NO; REVIEW REQ? NO
--- NOTE | 2016-09-04 10:22 | EMERGENCY ROOM VISIT NOTE ---
History First contact with patient: 09:24 Chief Complaint: FLANK PAIN Stated Complaint: PAIN IN KIDNEY AREA, LOWER BACK PAIN. CHILLED A BI History of Present Illness The patient is a 51 year old female who presents to the Emergency Room with complaints of back pain over the kidney area that started yesterday. The patient denies any urinary symptoms of frequency, urgency, dysuria or hematuria. The patient denies any nausea, vomiting or fever. The patient denies any chest pain or shortness of breath. The patient states she studies well-hydrated. She ran a half marathon on Wednesday. The patient is here today because she had sepsis the end of June beginning of July and was hospitalized due to a UTI. She was told at that time if she gets any similar symptoms she is to call her doctor's office right away. She called the doctor's office today and they told her that they did not have any appointments and that she needed to come to the emergency room. Review of Systems 6 system review was performed and was negative unless stated otherwise in history of present illness. Past Medical/Surgical History Surgical Problems: (1) H/O tooth extraction Sepsis Family History Cancer Social History Smoking Status: Former Smoker Drug Use: none Marital Status: single Housing Status: lives with family Occupation Status: employed Current/Historical Medications Scheduled Calcium Carbonate-Vitamin D W/ (Caltrate 600+D Plus), 1 CHW PO BID Cefuroxime Axetil (Cefuroxime Axetil), 250 MG PO BID Fexofenadine Hcl (Emily), 180 MG PO DAILY Scheduled PRN Ondansetron (Ondansetron HCl), 4 MG PO Q6H PRN for NAUSEA Tramadol HCl (Tramadol HCl), 50 MG PO Q4H PRN for mild Pain (1) Allergies Coded Allergies: No Known Allergies (Verified , 06/08/02) Physical Exam Vital Signs Date Time Temp Pulse Resp B/P Pulse Ox O2 Delivery O2 Flow Rate FiO2 09/04/16 09:12 36.4 52 20 148/92 99 Room Air Physical Exam GENERAL: 51-year-old white female appears in no acute distress. MENTAL Status: Alert and oriented 3. MOUTH: Mucosa is moist NECK: Supple, no lymphadenopathy noted. No carotid bruits noted. LUNGS: Clear auscultation without wheezes rales or rhonchi. CARDIAC: Regular rate and rhythm without murmur. Pulses is full and equal throughout. BACK: No CVA tenderness noted. ABDOMEN: Positive bowel sounds all 4 quadrants. Soft, nontender to palpation without organomegaly or masses. LUMBAR SPINE: No gross bony deformity noted. The patient is nontender to palpation in the spinous processes in the paravertebral region bilaterally. The patient is full range of motion. Patient is able to heel and toe walk without difficulty. Bilateral patellar and Achilles reflexes are 2+. EXTREMITIES: No cyanosis or edema noted. Medical Decision & Procedures Laboratory Results Test 09/04/16 09:55 Urine Color YELLOW Urine Appearance CLEAR (CLEAR) Urine pH 7.0 (4.5-7.5) Urine Specific [place] 1.008 (1.000-1.030) Urine Protein NEG (NEG) Urine Glucose (UA) NEG (NEG) Urine Ketones NEG (NEG) Urine Occult Blood NEG (NEG) Urine Nitrite NEG (NEG) Urine Bilirubin NEG (NEG) Urine Urobilinogen NEG (NEG) Urine Leukocyte Esterase NEG (NEG) Medications Administered Medications (Trade) Dose Ordered Sig/Jose Route Start Time Stop Time Status Last Admin Dose Admin Acetaminophen (Tylenol Tab) 1,000 mg NOW STAT PO 09/04/16 09:33 09/04/16 09:34 DC 09/04/16 10:04 1,000 MG ED Course The patient was evaluated. The patient's EMR and medication lists were reviewed. The patient's urine from her recent hospitalization did not reveal evidence of pyelonephritis but I reviewed the prior ER note any information and laboratory testing had FROM AN OUTSIDE SOURCE. THE PATIENT WAS GIVEN TYLENOL 1 G BY MOUTH FOR PAIN. URINALYSIS WAS ORDERED AND WAS NEGATIVE. THE PATIENT WAS INFORMED OF THE FINDINGS AND DISCHARGED HOME IN STABLE CONDITION. Medical Decision Differential diagnosis include lumbar strain, back pain of unknown etiology, UTI , pyelonephritis Impression Primary Impression: Back pain Departure Information Dispostion Home / Self-Care Condition GOOD Referrals Theo Bowling M.D. (PCP) Forms HOME CARE DOCUMENTATION FORM, IMPORTANT VISIT INFORMATION Patient Instructions My [facility] DOZ Additional Instructions Push fluids. Tylenol and/or ibuprofen as needed for back pain. If you experience any severe back pain, fever, urinary symptoms seek further medical attention. Problem Qualifiers Primary Impression: Back pain Back pain location: low back pain Chronicity: acute Back pain laterality: bilateral Sciatica presence: without sciatica Qualified Codes: M54.5 - Low back pain
[2016-09-04 10:31] VITALS: BP 145/72; PULSE 53; O2SAT 100
== END 2016-09-04 10:32 | disposition home or self-care (01) ==
LOC: C.EDB 09:08 → C.EDC 10:32
DX: M54.5 Low back pain (principal); Z87.440 Personal history of urinary (tract) infections; Z87.891 Personal history of nicotine dependence; Z79.899 Other long term (current) drug therapy

== ENCOUNTER → 2017-01-13 | Outpatient (CLI) | payer BC ==
[2017-01-13 17:28] LABS: BASO % 0.6 %; BASO ABS # 0.04 K/uL (0-0.2); COMPLETE YES; EOS % 1.6 %; HEMATOCRIT 39.6 % (37-47); IG% 0.2 %; LYMPH % 40.5 %; LYMPH ABS # 2.59 K/uL (1.2-3.4); MEAN CELL VOLUME 88.6 fL (80-100); MEAN CORPUSCULAR HEMOGLOBIN 30.2 pg (25-34); MEAN CORPUSCULAR HGB CONC 34.1 g/dl (32-36); MEAN PLATELET VOLUME 9.3 fL (7.4-10.4); MONO % 6.6 %; NEUT % 50.5 %; PLATELET COUNT 288 K/uL (130-400); RED BLOOD COUNT 4.47 M/uL (4.2-5.4); WHITE BLOOD COUNT 6.39 K/uL (4.8-10.8)
[2017-01-13 17:57] LABS: ALT/SGPT 25 U/L (12-78); BLOOD UREA NITROGEN 11 mg/dl (7-18); BUN/CREATININE RATIO 15.6 (10-20); CALCIUM 9.2 mg/dl (8.5-10.1); CARBON DIOXIDE 30 mmol/L (21-32); CHLORIDE 105 mmol/L (98-107); CREATININE 0.71 mg/dl (0.60-1.20); GLUCOSE 68 mg/dl (70-99); POTASSIUM 4.1 mmol/L (3.5-5.1); SODIUM 140 mmol/L (136-145)
[2017-01-13 18:08] LABS: ALKALINE PHOSPHATASE 110 U/L (45-117); AST/SGOT 23 U/L (15-37)
[2017-01-13 18:29] LABS: LYME DISEASE AB IGG NEG (NEG); LYME DISEASE AB IGM NEG (NEG)
== END | disposition home or self-care (01) ==
LOC: C.LABBFT 11:34
PROVIDERS: ATTEND Physician Assistant Medical
DX: R53.83 Other fatigue (principal)

== ENCOUNTER 2022-09-17 13:26 | Observation (INO) ==
[2022-09-17] MEDS ORDERED: SODIUM CHLORIDE 0.9% 1000ML 500 ML IV ONE (14:06)
--- NOTE | 2022-09-17 14:07 | Emergency Department Note ---
Impression & Plan Acute calculous cholecystitis ADMIT ED Provider Note HPI: The patient is a 57-year-old female who presents emergency department with chief complaint of right upper quadrant pain that seems to worsen after she eats meals. Patient states she also gets nauseous. Patient states she has had the symptoms for the past 2 days. Patient states she does have a history of gal lstones that were diagnosed incidentally on a CT image that was obtained for different purpose. On arrival here to the ED the patient is hemodynamically stable, she denies any vomiting, denies any chest pain or shortness of breath. ROS: - Per HPI *Outpatient medications and allergy history reviewed. *Pertinent external medical records reviewed. PE: General: Alert HEENT: Normocephalic, trachea midline Eyes: Extraocular eye movement is intact, no scleral erythema Pulmonary: Clear to auscultation bilaterally, no wheezing Cardio: Regular rate and rhythm GI: Abdomen is soft to palpation, there is tenderness in the right upper quadrant with guarding : No suprapubic tenderness MSK: No evidence of trauma or malformation of the extremities, no edema Skin: No evidence of rash Neuro: Alert, no focal deficits Psychiatric: Cooperative electronic device monitor: (As interpreted by myself): - An order was placed for continuous cardiac monitoring - Patient was noted to be in sinus rhythm with a rate of 70 Interventions provided in ED: -IV morphine, IV Zofran Differential Diagnosis: Biliary colic, acute cholecystitis, acute pancreatitis, small bowel obstruction, diverticulitis flare, acute appendicitis, amongst other potential pathologies. Medical Decision Making: Patient presented to the emergency department with right upper quadrant pain. Shortly after patient arrived IV was established and lab work obtained. Ultrasound imaging of the gallbladder was obtained given that the patient had focal tenderness in the right upper quadrant that worsened after meals. This do es show evidence of likely impacted stone within the neck of the gallbladder and gallbladder wall thickening consistent with acute cholecystitis. Lab work does not show any transaminitis or elevated bilirubin. Case was discussed with the on-call general surgery midlevel provider, Jacinda Barrera PA-C, patient was evaluated at the bedside and ultimately taken to the operating room under the service of Dr. Rogers for operative management and definitive care. Prior to this patient was in agreement to the above plan and was made aware of the above findings. Patient was sent to the OR in stable condition. Consultants: General surgery, Dr. Rogers Disposition discussion held by myself with: Patient Diagnosis: 1. Acute cholecystitis 2. Right upper quadrant pain, acute 3. 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 Diverticulosis Environmental allergies Labyrinthitis Left knee DJD Legally blind in right eye, as defined in [place] Vertigo Surgical History History of arthroscopy of left knee History of colonoscopy History of hysterectomy with unilateral oophorectomy History of placement of ear tubes Hx of appendectomy Hx of arthroscopic knee surgery Right Hx of section x2 Hx of tonsillectomy Hx of wisdom tooth extraction Family History Mother Difficult airway for intubation Son Asthma Allergic rhinitis Other Atrial fibrillation Social History Smoking Status: Never smoker Second Hand Exposure: Yes (as a child); Do You Dip or Chew Tobacco: No; Hx Alcohol Use: Yes Alcohol type: beer and wine Hx Substance Use: No Preferred Language: Sinhala Communication Ability: Effective Salvage Grinder Required: No Beliefs That Will Affect Care: None marital status: Current Living Situation: Alone current occupational status: employed current occupation: social work Feels Safe at Home: Yes Assistive Devices: Glasses Allergies Allergies Allergy/AdvReac Type Severity Reaction Status Date / Time environmental allergies Allergy Uncoded 08/19/22 13:05 Home Meds Home Medications Medication Instructions Recorded Confirmed fexofenadine 180 mg tablet 180 mg PO QAM 02/14/20 08/19/22 calcium carb-vit D3-minerals 600 1 tab PO DAILY 07/21/21 08/19/22 mg calcium-400 unit tablet Previous Rx's Medication Instructions Recorded ondansetron HCl 8 mg tablet 8 mg PO Q8H PRN nausea and 05/22/21 vomiting #30 tabs prednisone 10 mg tablets in a dose See Rx Instructions .Route 08/31/22 pack .COMPLEX #42 ea Results & Data (ED) Vital Signs Vital Signs - 24 hr 09/17/22 13:31 09/17/22 14:00 09/17/22 15:42 Temperature 36.6 C Temperature Source Temporal Artery Scan Pulse Rate 88 Pulse Rate [Left Finger] Pulse Rate from SpO2 Sensor Pulse Rhythm [Left Finger] Pulse Strength [Left Finger] Respiratory Rate 20 Respiratory Effort / Characteristics Non-Labored Spontaneous Respiratory Depth Normal Respiratory Pattern Regular Blood Pressure 158/95 H Blood Pressure [Left Arm] Blood Pressure Mean 116 Blood Pressure Mean [Left Arm] Blood Pressure Position [Left Arm] Pulse Oximetry 97 Oxygen Delivery Method Room Air Room Air Room Air Sepsis Recent Fever Within 48 Hours No Sepsis New/Unexplained Change in Mental Status No Sepsis Action Taken by Nursing No Action Required 09/17/22 15:12 09/17/22 15:30 09/17/22 16:00 Temperature 37 C Temperature Source Oral Pulse Rate 67 65 Pulse Rate [Left Finger] 64 Pulse Rate from SpO2 Sensor 67 64 Pulse Rhythm [Left Finger] Regular Pulse Strength [Left Finger] Normal Respiratory Rate 22 19 18 Respiratory Effort / Characteristics Non-Labored Spontaneous Respiratory Depth Normal Respiratory Pattern Regular Blood Pressure 154/80 H 138/79 Blood Pressure [Left Arm] 138/89 Blood Pressure Mean 104 98 Blood Pressure Mean [Left Arm] 105 Blood Pressure Position [Left Arm] Lying Pulse Oximetry 97 98 97 Oxygen Delivery Method Room Air Sepsis Recent Fever Within 48 Hours Sepsis New/Unexplained Change in Mental Status Sepsis Action Taken by Nursing Laboratory Data 09/17/22 14:00 09/17/22 14:00 Lab Results 09/17/22 09/17/22 09/17/22 Range/Units 14:00 14:00 14:15 WBC 10.47 (4.8-10.8) K/ul RBC 4.56 (4.20-5.40) M/uL Hgb 13.6 (12.0-16.0) g/dl Hct 39.8 (37.0-47.0) % MCV 87.3 (80.0-100.0) fL MCH 29.8 (25.0-34.0) pg MCHC 34.2 (32.0-36.0) g/dL RDW Std Deviation 39.8 (36.4-46.3) fL RDW Coeff of [place] 12.4 (11.5-14.5) % Plt Count 253 (130-400) K/uL MPV 9.0 L (9.4-12.4) fL Immature Gran % (Auto) 0.4 % Neut % (Auto) 71.4 % Lymph % (Auto) 16.7 % [place] % (Auto) 10.2 % Eos % (Auto) 1.0 % Baso % (Auto) 0.3 % Neut # (Auto) 7.48 H (1.40-6.50) K/uL Lymph # (Auto) 1.75 (1.2-3.4) K/uL [place] # (Auto) 1.07 H (0.11-0.59) K/uL Eos # (Auto) 0.10 (0-0.50) K/uL Baso # (Auto) 0.03 (0-0.2) K/uL Immature Gran # (Auto) 0.04 (0.01-0.20) K/uL Sodium 137 (136-145) mmol/L Potassium 3.5 (3.5-5.1) mmol/L Chloride 104 (98-107) mmol/L Carbon Dioxide 27 (21-32) mmol/L Anion Gap 6 (3-11) BUN 12 (6-23) mg/dl Creatinine 0.71 (0.6-1.2) mg/dl Est Cr Clr Drug Dosing 82.9 ml/min Est GFR ( Amer) 108.1 ml/min Est GFR (Non-Af Amer) 93.2 ml/min BUN/Creatinine Ratio 16.9 (10-20) Glucose 94 (70-99(Fasting)) mg/dl Calcium 9.4 (8.6-10.3) mg/dl Total Bilirubin 0.6 (0.2-1.0) mg/dl AST 19 (13-39) U/L ALT 18 (7-52) U/L Alkaline Phosphatase 79 (34-104) U/L Total Protein 6.9 (6.0-8.3) gm/dl Albumin 3.9 (3.4-5.0) gm/dl Globulin 3.0 (2.5-4.0) gm/dl Albumin/Globulin Ratio 1.3 (0.9-2) Lipase 22 (11-82) U/L Urine Color Dark Yellow Urine Appearance Clear (Clear) Urine pH 6.0 (4.5-7.5) Ur Specific [place] 1.023 (1.000-1.030) Urine Protein Negative (Negative) Urine Glucose (UA) Negative (Negative) Urine Ketones Trace H (Negative) Urine Blood Trace H (Negative) Urine Nitrite Negative (Negative) Urine Bilirubin Negative (Negative) Urine Urobilinogen Negative (Negative) Ur Leukocyte Esterase Negative (Negative) Urine WBC (Auto) 5-10 H (0-5) /hpf Urine RBC (Auto) 5-10 H (0-4) /hpf U Hyaline Cast (Auto) 5-10 H (0-5) /lpf U Epithel Cells (Auto) >30 H (0-5) /lpf Urine Bacteria (Auto) Negative (Negative) SARS-CoV-2 (PCR) (Negative) 09/17/22 Range/Units 15:27 WBC (4.8-10.8) K/ul RBC (4.20-5.40) M/uL Hgb (12.0-16.0) g/dl Hct (37.0-47.0) % MCV (80.0-100.0) fL MCH (25.0-34.0) pg MCHC (32.0-36.0) g/dL RDW Std Deviation (36.4-46.3) fL RDW Coeff of [place] (11.5-14.5) % Plt Count (130-400) K/uL MPV (9.4-12.4) fL Immature Gran % (Auto) % Neut % (Auto) % Lymph % (Auto) % [place] % (Auto) % Eos % (Auto) % Baso % (Auto) % Neut # (Auto) (1.40-6.50) K/uL Lymph # (Auto) (1.2-3.4) K/uL [place] # (Auto) (0.11-0.59) K/uL Eos # (Auto) (0-0.50) K/uL Baso # (Auto) (0-0.2) K/uL Immature Gran # (Auto) (0.01-0.20) K/uL Sodium (136-145) mmol/L Potassium (3.5-5.1) mmol/L Chloride (98-107) mmol/L Carbon Dioxide (21-32) mmol/L Anion Gap (3-11) BUN (6-23) mg/dl Creatinine (0.6-1.2) mg/dl Est Cr Clr Drug Dosing ml/min Est GFR ( Amer) ml/min Est GFR (Non-Af Amer) ml/min BUN/Creatinine Ratio (10-20) Glucose (70-99(Fasting)) mg/dl Calcium (8.6-10.3) mg/dl Total Bilirubin (0.2-1.0) mg/dl AST (13-39) U/L ALT (7-52) U/L Alkaline Phosphatase (34-104) U/L Total Protein (6.0-8.3) gm/dl Albumin (3.4-5.0) gm/dl Globulin (2.5-4.0) gm/dl Albumin/Globulin Ratio (0.9-2) Lipase (11-82) U/L Urine Color Urine Appearance (Clear) Urine pH (4.5-7.5) Ur Specific [place] (1.000-1.030) Urine Protein (Negative) Urine Glucose (UA) (Negative) Urine Ketones (Negative) Urine Blood (Negative) Urine Nitrite (Negative) Urine Bilirubin (Negative) Urine Urobilinogen (Negative) Ur Leukocyte Esterase (Negative) Urine WBC (Auto) (0-5) /hpf Urine RBC (Auto) (0-4) /hpf U Hyaline Cast (Auto) (0-5) /lpf U Epithel Cells (Auto) (0-5) /lpf Urine Bacteria (Auto) (Negative) SARS-CoV-2 (PCR) NEGATIVE (Negative) Administered Medications Discontinued Medications Sodium Chloride (Nss 1000ml) 500 mls @ 999 mls/hr IV .Q31M ONE Stop: 09/17/22 14:36 Last Admin: 09/17/22 15:01 Dose: 999 mls/hr Documented By: ARS Morphine Sulfate (Morphine Sulfate 4 Mg/Ml 1 Ml Carp\Vial) 4 mg IV NOW STA Stop: 09/17/22 14:51 Last Admin: 09/17/22 15:00 Dose: 4 mg Documented By: ARS Ondansetron HCl (Ondansetron Inj 2 Mg/Ml 2 Ml Vial) 4 mg IV NOW STA Stop: 09/17/22 14:51 Last Admin: 09/17/22 15:01 Dose: 4 mg Documented By: MILTON Imaging Data Radiologist's Impression: Gallbladder Ultrasound 05/25/23 14:06 ABDOMINAL ULTRASOUND, RIGHT UPPER QUADRANT HISTORY: RUQ pain after meals. COMPARISON: Renal ultrasound 07/21/2016. FINDINGS: Pancreas: Obscured by overlying bowel gas. Liver: The liver is echogenic consistent with fatty change. Gallbladder: There is a 1.5 cm stone at the neck of the gallbladder. This could be impacted. There is a small amount of gallbladder sludge. There is mild gallbladder wall thickening measuring up to 4 mm. Small cystic focus/fluid either within or adjacent to the gallbladder wall. This is located near the fundus and could represent adenomyomatosis. Positive sonographic Haynes sign. CBD: 5 mm. Right kidney: No hydronephrosis. IMPRESSION: 1. A 1.5 cm stone at the neck of the gallbladder which could be impacted. There is a positive sonographic Haynes's sign and mild gallbladder wall thickening. Therefore, these likely represents an acute cholecystitis. Surgical consultation recommended. 2. Small focus of fluid either within or adjacent to the gallbladder wall. This could represent adenomyomatosis. Focus of gallbladder perforation is considered less likely but not entirely excluded. 3. Normal caliber common bile duct. ACT 112: Negative or not required by law. Electronically signed by: Sourav Rhoades M.D. 09/17/2022 3:06 PM Discharge Plan Visit Data Chief Complaint: Abdominal Pain Stated Complaint: ABDOMINAL PAIN,BACK PAIN,?GALLBLADDER ED Provider: Bradley Rene Discharge Problem: Acute calculous cholecystitis Patient Disposition: Admitted As Inpatient Discharge Instructions Interventions: ED Discharge Assessment Last Done: 09/17/22 15:42
[2022-09-17 14:22] LABS: Basophils # (auto) 0.03 K/uL (0-0.2); Basophils % (auto) 0.3 %; Hematocrit (blood only) 39.8 % (37.0-47.0); Hemoglobin 13.6 g/dl (12.0-16.0); Immature Granulocytes # (auto) 0.04 K/uL (0.01-0.20); Immature Granulocytes % (auto) 0.4 %; Lymphocytes # (auto) 1.75 K/uL (1.2-3.4); Lymphocytes % (auto) 16.7 %; Mean Corpuscular Hemoglobin 29.8 pg (25.0-34.0); Mean Corpuscular Hgb Conc 34.2 g/dL (32.0-36.0); Mean Corpuscular Volume 87.3 fL (80.0-100.0); Monocytes # (auto) 1.07 K/uL (0.11-0.59); Monocytes % (auto) 10.2 %; Neutrophils # (auto) 7.48 K/uL (1.40-6.50); Neutrophils % (auto) 71.4 %; Platelet Count 253 K/uL (130-400); RDW Coefficient of Variation 12.4 % (11.5-14.5); RDW Standard Deviation 39.8 fL (36.4-46.3); Red Blood Count 4.56 M/uL (4.20-5.40); White Blood Count 10.47 K/ul (4.8-10.8)
[2022-09-17 14:34] LABS: Appearance Urine Clear (Clear); Bacteria Urine Automated Negative (Negative); Bilirubin Urine Negative (Negative); Blood Urine Trace (Negative); Color Urine Dark Yellow; Epithelial Cell Urine Auto >30 /lpf (0-5); Glucose Urine UA Negative (Negative); Ketones Urine Trace (Negative); Leukocyte Esterase Urine Negative (Negative); Nitrite Urine Negative (Negative); Protein Urine Negative (Negative); Specific Gravity Urine 1.023 (1.000-1.030); Urobilinogen Urine Negative (Negative)
[2022-09-17 14:39] LABS: Albumin Globulin Ratio 1.3 (0.9-2); Albumin Level 3.9 gm/dl (3.4-5.0); BUN Creatinine Ratio 16.9 (10-20); Bilirubin,Total 0.6 mg/dl (0.2-1.0); Calcium 9.4 mg/dl (8.6-10.3); Creatinine Clr Calc Pharmacy 82.9 ml/min; Est GFR (African American) 108.1 ml/min; Est GFR (Non-African American) 93.2 ml/min; Potassium 3.5 mmol/L (3.5-5.1); Total Protein 6.9 gm/dl (6.0-8.3)
[2022-09-17] MEDS ORDERED: ONDANSETRON INJ 2 MG/ML 2 ML VIAL IV STA (14:50)
[2022-09-17] MEDS ORDERED: MoRPHine SULFATE 4 MG/ML 1 ML CARP\\VIAL IV STA (14:50)
--- NOTE | 2022-09-17 15:07 | Ultrasound Report ---
ABDOMINAL ULTRASOUND, RIGHT UPPER QUADRANT HISTORY: RUQ pain after meals. COMPARISON: Renal ultrasound 07/21/2016. FINDINGS: Pancreas: Obscured by overlying bowel gas. Liver: The liver is echogenic consistent with fatty change. Gallbladder: There is a 1.5 cm stone at the neck of the gallbladder. This could be impacted. There is a small amount of gallbladder sludge. There is mild gallbladder wall thickening measuring up to 4 mm . Small cystic focus/fluid either within or adjacent to the gallbladder wall. This is located near th e fundus and could represent adenomyomatosis. Positive sonographic Haynes sign. CBD: 5 mm. Right kidney: No hydronephrosis. IMPRESSION: 1. A 1.5 cm stone at the neck of the gallbladder which could be impacted. There is a positive sonogra phic Haynes's sign and mild gallbladder wall thickening. Therefore, these likely represents an acute cholecystitis. Surgical consultation recommended. 2. Small focus of fluid either within or adjacent to the gallbladder wall. This could represent adeno myomatosis. Focus of gallbladder perforation is considered less likely but not entirely excluded. 3. Normal caliber common bile duct. ACT 112: Negative or not required by law. Electronically signed by: Sourav Rhoades M.D. 09/17/2022 3:06 PM
--- NOTE | 2022-09-17 15:21 | History & Physical Report ---
Date of Service September 17, 2022 Assessment & Plan (1) Acute cholecystitis: Plan: This is a 57yF with no significant PMH who presents to the [facility] ED on 09/17/22 with complaints of RUQ abdominal pain that started Wednesday that is becoming more severe. In the ER she underwent a RUQ US that revealed a 1.5 cm stone at the neck of the gallbladder which could be impacted, + haynes's sign, gallbladder wall thickening and evidence of acute cholecystitis. There is a small focus of fluid either within or adjacent to the gallbladder wall, which could represent adenomyomatosis vs less likely gallbladder perforation. Labs show a WBC 10 and LFTs are within normal limits. Vital signs are stable. On exam abdomen is soft but is tender to palpation in the RUQ and epigastric regions. History, imaging, and exam all consistent with concern for acute cholecystitis. We will plan to pr oceed with laparoscopic cholecystectomy today. Keep npo, ivf, and iv abx. Dr. Rogers will obtain consent. as above. c/w acute cholecystitis. discussed options/risks ( bleedding/infection/bile duct leak or injury/injury to other organs/dvt/pe/mi/cva. questions answered. will proceed with lap desean johanna. pt agrees with plan. History of Present Illness Primary Care Provider: Trinidad Mohan MD This is a 57yF with no significant PMH who presents to the [facility] ED on 09/17/22 with complaints of RUQ abdominal pain that started Wednesday. She states it gets worse anytime after she eats anything. It is becoming more severe for her rating it a 7/10 and the pain radiates to her back and to her shoulder. It is associated with some nausea, no vomiting. in the ER she underwent a RUQ US that revealed a 1.5 cm stone at the neck of the gallbladder which could be impacted, + murphys sign, gallbladder wall thickening and evidence of acute cholecystitis. There is a small focus of fluid either within or adjacent to the gallbladder wall, which could represent adenomyomatosis vs less likely gallbladder perforation. The patient last had some cottage cheese for lunch. Her past surgical history includes an appendectomy, hysterectomy, x2. She denies fevers/chills, chest pain, shortness of breath, or changes in bowel habits. Allergies Allergy/AdvReac Type Severity Reaction Status Date / Time environmental allergies Allergy Uncoded 08/19/22 13:05 Home Medications Medication Instructions Recorded Confirmed Type fexofenadine 180 mg tablet 180 mg PO QAM 02/14/20 08/19/22 History ondansetron HCl 8 mg tablet 8 mg PO Q8H PRN nausea and 05/22/21 08/19/22 Rx vomiting #30 tabs calcium carb-vit D3-minerals 600 1 tab PO DAILY 07/21/21 08/19/22 History mg calcium-400 unit tablet prednisone 10 mg tablets in a dose See Rx Instructions .Route 08/31/22 Rx pack .COMPLEX #42 ea Past Med/Surg History Medical History Bradycardia 40s-50s at rest Deafness in 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 Diverticulosis Environmental allergies Labyrinthitis Left knee DJD Legally blind in right eye, as defined in [place] Vertigo Surgical History History of arthroscopy of left knee History of colonoscopy History of hysterectomy with unilateral oophorectomy History of placement of ear tubes Hx of appendectomy Hx of arthroscopic knee surgery Right Hx of section x2 Hx of tonsillectomy Hx of wisdom tooth extraction Family History Mother Difficult airway for intubation Son Asthma Allergic rhinitis Other Atrial fibrillation Social History Smoking Status: Never smoker Second Hand Exposure: Yes (as a child); Do You Dip or Chew Tobacco: No; Hx Alcohol Use: Yes Alcohol type: beer and wine Hx Substance Use: No Preferred Language: Salvadorean Communication Ability: Effective Logistics Operations Manager Required: No Beliefs That Will Affect Care: None marital status: Current Living Situation: Alone current occupational status: employed current occupation: social work Feels Safe at Home: Yes Assistive Devices: Glasses Review of Systems Constitutional: no fever and no chills Respiratory: no cough Cardiovascular: no chest pain Gastrointestinal: + abdominal pain (RUQ), + bloating and + nausea; no vomiting and no change in bowel habits Musculoskeletal: pain radiating into back Physical Exam Physical Exam: awake/alert Constitutional: well developed and well nourished; no acute distress Respiratory: normal respiratory effort Cardiovascular: Rate/Rhythm: regular rate Gastrointestinal (Abdomen): Inspection/Auscultation: + abdominal surgical scar (midline infra-umbilical); abdomen not distended Percussion/Palpation: + ab domen tender (ttp in RUQ and epigastric regions) and abdomen soft Results & Data Results & Data Vital Signs (Past 12 Hours) Vital Signs Temp Pulse Resp BP Pulse Ox O2 Del Method 09/17/22 14:00 Room Air 09/17/22 13:31 36.6 C 88 20 158/95 H 97 Room Air Diagnostic Findings ABDOMINAL ULTRASOUND, RIGHT UPPER QUADRANT HISTORY: RUQ pain after meals. COMPARISON: Renal ultrasound 07/21/2016. FINDINGS: Pancreas: Obscured by overlying bowel gas. Liver: The liver is echogenic consistent with fatty change. Gallbladder: There is a 1.5 cm stone at the neck of the gallbladder. This could be impacted. There is a small amount of gallbladder sludge. There is mild gallbladder wall thickening measuring up to 4 mm. Small cystic focus/fluid either within or adjacent to the gallbladder wall. This is located near the fundus and could represent adenomyomatosis. Positive sonographic Haynes sign. CBD: 5 mm. Right kidney: No hydronephrosis. IMPRESSION: 1. A 1.5 cm stone at the neck of the gallbladder which could be impacted. There is a positive sonographic Haynes's sign and mild gallbladder wall thickening. Therefore, these likely represents an acute cholecystitis. Surgical consultation recommended. 2. Small focus of fluid either within or adjacent to the gallbladder wall. This could represent adenomyomatosis. Focus of gallbladder perforation is considered less likely but not entirely excluded. 3. Normal caliber common bile duct. ACT 112: Negative or not required by law. Electronically signed by: Sourav Rhoades M.D. 09/17/2022 3:06 PM PG Care Time/CCT Total # of Minutes Spent Total Time Spent with Patient: Total time spent is greater than 50% in coordination of care (as documented) at patient's floor/unit and/or counseling patient: Coding Level of Care Code 22239 INT INP/OBS CARE 2/55MIN Diagnoses Acute cholecystitis K81.0
[2022-09-17] MEDS ORDERED: cefOXitin 2,000 MG/60 ML BAG IV STA (15:49)
[2022-09-17] MEDS ORDERED: BUPIVACAINE/EPINEPHRINE 0.5% MPF 1:200,000 30 ML VIAL ONE (15:53)
[2022-09-17] MEDS ORDERED: fentaNYL citrate PF 100 MCG/2 ML VIAL ONE ×2 (16:12→18:19)
[2022-09-17] MEDS ORDERED: MIDAZOLAM HCL 1 MG/ML 2ML VIAL ONE (16:12)
[2022-09-17] MEDS ORDERED: ROCURONIUM BROMIDE 10 MG/ML 5 ML VIAL IV ONE ×2 (16:23→17:39)
[2022-09-17] MEDS ORDERED: GLYCOPYRROLATE 0.2 MG/ML VIAL ONE (16:23)
[2022-09-17] MEDS ORDERED: ONDANSETRON INJ 2 MG/ML 2 ML VIAL ONE (16:23)
[2022-09-17] MEDS ORDERED: LIDOCAINE 2% 2 ML VIAL/AMP(20MG/ML) INFIL ONE (16:23)
[2022-09-17] MEDS ORDERED: DEXAMETHASONE SOD INJ 4 MG/ML VIAL ONE (16:23)
[2022-09-17] MEDS ORDERED: PROPOFOL IV EMULSION 10 MG/ML 20 ML VIAL IV ONE (16:23)
[2022-09-17] MEDS ORDERED: ePHEDrine sulfate 50 MG/ML AMP IV PRN (18:33)
[2022-09-17] MEDS ORDERED: PROMETHAZINE HCL 6.25 MG in SODIUM CHLORIDE 0.9% 50 ML IV PRN (18:33)
[2022-09-17] MEDS ORDERED: ATROPINE SULFATE 0.1 MG/ML 10ML SYR IV PRN (18:33)
[2022-09-17] MEDS ORDERED: ONDANSETRON INJ 2 MG/ML 2 ML VIAL IV PRN (18:33)
--- NOTE | 2022-09-17 18:36 | Operative Report ---
PG Post Operative Report Pre & Post Diagnosis Operation Date: 09/17/22 10:35 Pre-Op Diagnosis: cholecystitis Post-Op Diagnosis: cholecystitis I identified the patient and participated in the time-out.: Yes Procedure Operation Date: 09/17/22 10:35 Actual Procedures p Laparoscopic Cholecystectomy(Not Applicable) - Kerwin Rogers DO please add difficult case modifier Surgeon Kerwin oRgers DO Grievance Coordinator Vuolo, MS2 Estimated Blood Loss 25 Findings Consistent with Post-Op Diagnosis Specimens gallbladder Description of Procedure After informed consent was obtained the patient was taken to the operating room and placed in supine position. After successful intubation the abdomen was sterilely prepped and draped in usual fashion. A supraumbilical incision was made with an 11 blade scalpel and carried down through the soft tissue using cautery. Anterior fascia was opened using cautery and two #0 Vicryl stay schulte tures were placed. A finger sweep was performed. A 12 mm Gill trocar was placed and the abdomen was insufflated to 20 mmHg. The laparoscope was inserted. A subxiphoid 5 mm port which would later be exchanged for a 12 mm port and 2 left upper quadrant 5 mm ports were placed under direct vision. The patient was placed in a reverse Trendelenburg position and airplaned to the left. The gallbladder was completely gangrenous. The omentum was tightly adhered to it. Dissection and visualization throughout the case would pose quite difficult. I ended up putting a fifth trocar a 5 mm in the left mid abdomen to help retract. Eventually I was able to peel the omentum off of the face of the gallbladder. This allowed me to delicately dissect using blunt dissection down to the neck. There was a large impacted stone in the neck. A small hole was made in the gallbladder with a grasper releasing white bile indicating complete cystic duct obstruction. Eventually I was able to skeletonize the cystic duct. Extra-large clip cylinder press operator apprentice was used to place 2 clips distally and 1 clip proximally. The cystic duct was divided. I continued to use primarily blunt dissection. I was able to identify the common bile duct to keep it out of harm's way. I was able to identify the cystic artery which I clipped and divided as well. Blunt dissection and cautery were used to remove the gallbladder from the gallbladder fossa. It was placed into an Endo Catch bag and removed from the camera port site. Any small bleeding points on the gallbladder fossa were controlled using cautery. Thorough irrigation was performed. There was also a small hiatal hernia present other than that no other gross abnormalities. A 10 flat Rodo-Estevez drain was placed in the right upper quadrant brought out through one of the 5 mm trocar sites and secured to skin using 2-0 silk. All the trocars were removed and the abdomen was desufflated. The fascia of the camera port was closed using 0 Vicryl in a [id number] fashion. All the wounds were irrigated and closed using 4-0 Monocryl. Marcaine with epinephrine was injected around them for postoperative analgesia. Skin glue was used as a dressing. The patient was awakened extubated and transferred to recovery in stable condition. I attest to the content of the Intraoperative Record and any orders documented therein. Any exceptions are noted below.
[2022-09-17] MEDS: fentaNYL citrate PF 100 MCG/2 ML VIAL IV PRN ×4 (18:41→19:10)
[2022-09-17] MEDS ORDERED: ONDANSETRON 4 MG OD TAB PO PRN (20:21)
[2022-09-17] MEDS ORDERED: HYDROmorphone INJ 0.5 MG/0.5 ML SYR IV PRN (20:21)
[2022-09-17] MEDS ORDERED: COUGH DROP (SUGAR FREE) LOZ 24 LOZ/1 BOX BUCCAL ONE (20:29)
[2022-09-17] MEDS ORDERED: HYDROmorphone INJ 0.5 MG/0.5 ML SYR ONE (20:40)
[2022-09-17] MEDS: HYDROmorphone INJ 0.5 MG/0.5 ML SYR IV PRN (20:42)
[2022-09-17] MEDS: cefOXitin 2,000 MG in DEXTROSE 5% 50 ML IV SCH (21:38)
[2022-09-17] MEDS: ACETAMINOPHEN 1,000 MG/100 ML VIAL IV SCH (21:38)
[2022-09-17] MEDS: LACTATED RINGER'S 1,000 ML IV SCH (21:38)
--- NOTE | 2022-09-17 22:10 | Anesthesiology Progress Note ---
Date of Service September 17, 2022 Anesthesia Post Procedure Vital Signs Vital Signs: Temp Pulse Pulse Pulse Resp BP BP 09/17/22 20:00 37 C 88 14 113/70 09/17/22 20:00 09/17/22 22:00 36.5 C 79 18 122/68 09/17/22 21:00 36.7 C 89 18 118/74 09/17/22 20:30 36.7 C 91 H 18 115/71 09/17/22 20:00 37 C 83 18 113/70 09/17/22 19:45 87 20 114/67 09/17/22 19:35 74 17 120/68 09/17/22 19:25 72 17 122/72 09/17/22 19:15 36.8 C 80 18 137/76 09/17/22 19:05 85 23 125/69 09/17/22 18:55 81 22 122/71 09/17/22 18:45 77 24 130/73 09/17/22 18:37 36.8 C 81 20 136/72 09/17/22 16:00 37 C 64 18 138/89 09/17/22 15:30 65 19 138/79 09/17/22 15:12 67 22 154/80 H 09/17/22 15:42 09/17/22 14:00 09/17/22 13:31 36.6 C 88 20 158/95 H Pulse Ox O2 Del Method O2 Flow Rate 09/17/22 20:00 96 Nasal Cannula 2 09/17/22 20:00 Nasal Cannula 2 09/17/22 22:00 93 Room Air 09/17/22 21:00 92 Room Air 09/17/22 20:30 97 Nasal Cannula 2 09/17/22 20:00 95 Nasal Cannula 2 09/17/22 19:45 95 Nasal Cannula 2 09/17/22 19:35 94 Nasal Cannula 2 09/17/22 19:25 94 Nasal Cannula 2 09/17/22 19:15 95 Nasal Cannula 2 09/17/22 19:05 97 Nasal Cannula 2 09/17/22 18:55 98 Nasal Cannula 2 09/17/22 18:45 99 Nasal Cannula 4 09/17/22 18:37 99 Nasal Cannula 4 09/17/22 16:00 97 Room Air 09/17/22 15:30 98 09/17/22 15:12 97 09/17/22 15:42 Room Air 09/17/22 14:00 Room Air 09/17/22 13:31 97 Room Air Pain Intensity Bilateral Abdomen: Pain Intensity: 6 Abdomen: Pain Intensity: 5 Transfer of Care Handoff Completed per policy Notes Mental Status: alert / awake / arousable Patient Amnestic to Procedure: Yes Nausea / Vomiting: adequately controlled Pain: adequately controlled Airway Patency, RR, SpO2: stable & adequate BP & HR: stable & adequate Hydration State: stable & adequate Anesthetic Complications: no major complications apparent
[2022-09-18] MEDS: HYDROmorphone INJ 0.5 MG/0.5 ML SYR IV PRN (02:47)
[2022-09-18] MEDS: LACTATED RINGER'S 1,000 ML IV SCH ×3 (05:33→21:59)
[2022-09-18] MEDS: cefOXitin 2,000 MG in DEXTROSE 5% 50 ML IV SCH ×4 (05:33→21:21)
[2022-09-18] MEDS: ACETAMINOPHEN 1,000 MG/100 ML VIAL IV SCH ×3 (05:33→22:00)
[2022-09-18 06:34] LABS: Basophils # (auto) 0.02 K/uL (0-0.2); Basophils % (auto) 0.2 %; Hematocrit (blood only) 36.1 % (37.0-47.0); Hemoglobin 12.4 g/dl (12.0-16.0); Immature Granulocytes # (auto) 0.07 K/uL (0.01-0.20); Immature Granulocytes % (auto) 0.6 %; Lymphocytes # (auto) 0.68 K/uL (1.2-3.4); Lymphocytes % (auto) 5.6 %; Mean Corpuscular Hgb Conc 34.3 g/dL (32.0-36.0); Mean Corpuscular Volume 87.2 fL (80.0-100.0); Mean Platelet Volume 9.2 fL (9.4-12.4); Monocytes # (auto) 0.55 K/uL (0.11-0.59); Monocytes % (auto) 4.5 %; Neutrophils # (auto) 10.77 K/uL (1.40-6.50); Neutrophils % (auto) 89.1 %; Platelet Count 255 K/uL (130-400); RDW Coefficient of Variation 12.5 % (11.5-14.5); RDW Standard Deviation 39.9 fL (36.4-46.3); Red Blood Count 4.14 M/uL (4.20-5.40); White Blood Count 12.09 K/ul (4.8-10.8)
[2022-09-18 06:44] LABS: Albumin Globulin Ratio 1.3 (0.9-2); Albumin Level 3.7 gm/dl (3.4-5.0); BUN Creatinine Ratio 14.3 (10-20); Bilirubin,Total 0.5 mg/dl (0.2-1.0); Calcium 9.4 mg/dl (8.6-10.3); Creatinine Clr Calc Pharmacy 70.1 ml/min; Est GFR (African American) 88.2 ml/min; Est GFR (Non-African American) 76.1 ml/min; Globulin 2.9 gm/dl (2.5-4.0); Potassium 4.2 mmol/L (3.5-5.1); Total Protein 6.6 gm/dl (6.0-8.3)
[2022-09-18] MEDS: KETOROLAC 30 MG/ML VIAL IV PRN ×2 (07:41→15:15)
[2022-09-18] MEDS: IBUPROFEN 600 MG TAB PO PRN (10:51)
[2022-09-18] MEDS: oxyCODONE HCL IR 5 MG TAB (IMMEDIATE RELEASE) PO PRN ×3 (11:44→20:17)
--- NOTE | 2022-09-18 13:48 | Surgery Progress Note ---
Date of Service September 18, 2022 Assessment & Plan (1) Hx laparoscopic cholecystectomy: Plan: Postoperative day #1 Doing well however not ready for discharge yet We will continue IV antibiotics If she is doing better tomorrow she can be discharged then. We can remove her GAYATHRI drain prior to discharge. Dr. Camiol covering for the weekend Admission and Anticipated Discharge Date Admission Date: September 17, 2022 Subjective Patient seen. Overall doing okay. She is having more pain than she anticipated. It is different pain than she had preoperatively however. She is tolerating clear liquids. Physical Exam Physical Exam: Alert. No acute distress Her abdomen is soft with expected tenderness. GAYATHRI is serosanguineous Results & Data Vital Signs (Past 12 Hours) Vital Signs Temp Pulse Resp BP Pulse Ox O2 Del Method 09/18/22 07:48 36.8 C 57 L 16 119/74 96 Room Air 09/18/22 02:51 37 C 68 14 132/73 96 Room Air PG Care Time/CCT Total # of Minutes Spent Total Time Spent with Patient: Total time spent is greater than 50% in coordination of care (as documented) at patient's floor/unit and/or counseling patient: Coding Level of Care Code 47249 Post Operative Follow-Up Diagnoses Hx laparoscopic cholecystectomy Z90.49
[2022-09-19] MEDS: oxyCODONE HCL IR 5 MG TAB (IMMEDIATE RELEASE) PO PRN ×4 (01:55→17:05)
[2022-09-19] MEDS: cefOXitin 2,000 MG in DEXTROSE 5% 50 ML IV SCH ×4 (04:33→22:03)
[2022-09-19] MEDS: LACTATED RINGER'S 1,000 ML IV SCH ×2 (05:55→13:22)
[2022-09-19] MEDS: ACETAMINOPHEN 1,000 MG/100 ML VIAL IV SCH ×3 (05:56→21:40)
[2022-09-19 06:22] LABS: Basophils # (auto) 0.03 K/uL (0-0.2); Basophils % (auto) 0.3 %; Eosinophils # (auto) 0.13 K/uL (0-0.50); Eosinophils % (auto) 1.3 %; Hematocrit (blood only) 33.1 % (37.0-47.0); Hemoglobin 10.9 g/dl (12.0-16.0); Immature Granulocytes # (auto) 0.04 K/uL (0.01-0.20); Immature Granulocytes % (auto) 0.4 %; Lymphocytes # (auto) 1.74 K/uL (1.2-3.4); Lymphocytes % (auto) 16.9 %; Mean Corpuscular Hemoglobin 29.7 pg (25.0-34.0); Mean Corpuscular Hgb Conc 32.9 g/dL (32.0-36.0); Mean Corpuscular Volume 90.2 fL (80.0-100.0); Mean Platelet Volume 9.2 fL (9.4-12.4); Monocytes # (auto) 0.82 K/uL (0.11-0.59); Neutrophils # (auto) 7.51 K/uL (1.40-6.50); Neutrophils % (auto) 73.1 %; Platelet Count 210 K/uL (130-400); RDW Coefficient of Variation 12.6 % (11.5-14.5); RDW Standard Deviation 41.8 fL (36.4-46.3); Red Blood Count 3.67 M/uL (4.20-5.40); White Blood Count 10.27 K/ul (4.8-10.8)
--- NOTE | 2022-09-19 12:55 | Surgery Progress Note ---
Date of Service September 19, 2022 Assessment & Plan (1) Acute cholecystitis: Plan: pt is a 57 year-old female who was admitted to hospital for acute cholecystitis, pt had laparoscopic cholecystectomy yesterday, POD 1 pt is doing better, less RUQ pain, tolerated diet, continue iv antibiotic, good control S/P -op pain, OOB repeat labs CBC, CMP tomorrow, august D/C home tomorrow, will F/U. Admission and Anticipated Discharge Date Admission Date: September 17, 2022 Subjective Patient seen. Overall doing okay. She is having more pain than she anticipated. It is different pain than she had preoperatively however. She is tolerating clear liquids. 09/19/2022 12:54PM Dr. Camilo F/U S/p laparoscopic cholecystectomy pt feels better, no significant abdominal pain, tolerated diet, no nausea, no vomiting, no fever, GAYATHRI 30ml blood color. Physical Exam Constitutional: WD/WN, vitals as above Eyes: PERRL, conjunctivae normal, anicteric sclerae Neck: trachea midline, no thyromegaly Respiratory: normal respiratory effort, lungs clear to auscultation Cardiovascular: RRR, no murmur, no edema Gastrointestinal (Abdomen): soft, mild tenderness at RUQ, no rebound pain, no distend, all incisions intact, no redness. GAYATHRI intact. Musculoskeletal: no cyanosis or clubbing, extremities motor strength 5/5 Neurologic: patellar DTR's 2+ bilat, sensation intact Psychiatric: A+Ox3, euthymic affect Results & Data Vital Signs (Past 12 Hours) Vital Signs Temp Pulse Resp BP Pulse Ox O2 Del Method 09/19/22 11:53 36.8 C 62 18 157/90 H 95 Room Air 09/19/22 07:55 36.8 C 56 L 18 118/80 96 Room Air Laboratory Results Lab Results 09/17/22 09/17/22 09/17/22 Range/Units 14:00 14:00 14:15 WBC 10.47 (4.8-10.8) K/ul RBC 4.56 (4.20-5.40) M/uL Hgb 13.6 (12.0-16.0) g/dl Hct 39.8 (37.0-47.0) % MCV 87.3 (80.0-100.0) fL MCH 29.8 (25.0-34.0) pg MCHC 34.2 (32.0-36.0) g/dL RDW Std Deviation 39.8 (36.4-46.3) fL RDW Coeff of [place]anie 12.4 (11.5-14.5) % Plt Count 253 (130-400) K/uL MPV 9.0 L (9.4-12.4) fL Immature Gran % (Auto) 0.4 % Neut % (Auto) 71.4 % Lymph % (Auto) 16.7 % [place] % (Auto) 10.2 % Eos % (Auto) 1.0 % Baso % (Auto) 0.3 % Neut # (Auto) 7.48 H (1.40-6.50) K/uL Lymph # (Auto) 1.75 (1.2-3.4) K/uL [place] # (Auto) 1.07 H (0.11-0.59) K/uL Eos # (Auto) 0.10 (0-0.50) K/uL Baso # (Auto) 0.03 (0-0.2) K/uL Immature Gran # (Auto) 0.04 (0.01-0.20) K/uL Sodium 137 (136-145) mmol/L Potassium 3.5 (3.5-5.1) mmol/L Chloride 104 (98-107) mmol/L Carbon Dioxide 27 (21-32) mmol/L Anion Gap 6 (3-11) BUN 12 (6-23) mg/dl Creatinine 0.71 (0.6-1.2) mg/dl Est Cr Clr Drug Dosing 82.9 ml/min Est GFR ( Amer) 108.1 ml/min Est GFR (Non-Af Amer) 93.2 ml/min BUN/Creatinine Ratio 16.9 (10-20) Glucose 94 (70-99(Fasting)) mg/dl Calcium 9.4 (8.6-10.3) mg/dl Total Bilirubin 0.6 (0.2-1.0) mg/dl AST 19 (13-39) U/L ALT 18 (7-52) U/L Alkaline Phosphatase 79 (34-104) U/L Total Protein 6.9 (6.0-8.3) gm/dl Albumin 3.9 (3.4-5.0) gm/dl Globulin 3.0 (2.5-4.0) gm/dl Albumin/Globulin Ratio 1.3 (0.9-2) Lipase 22 (11-82) U/L Urine Color Dark Yellow Urine Appearance Clear (Clear) Urine pH 6.0 (4.5-7.5) Ur Specific [place] 1.023 (1.000-1.030) Urine Protein Negative (Negative) Urine Glucose (UA) Negative (Negative) Urine Ketones Trace H (Negative) Urine Blood Trace H (Negative) Urine Nitrite Negative (Negative) Urine Bilirubin Negative (Negative) Urine Urobilinogen Negative (Negative) Ur Leukocyte Esterase Negative (Negative) Urine WBC (Auto) 5-10 H (0-5) /hpf Urine RBC (Auto) 5-10 H (0-4) /hpf U Hyaline Cast (Auto) 5-10 H (0-5) /lpf U Epithel Cells (Auto) >30 H (0-5) /lpf Urine Bacteria (Auto) Negative (Negative) SARS-CoV-2 (PCR) (Negative) 09/17/22 09/18/22 09/18/22 Range/Units 15:27 05:47 05:47 WBC 12.09 H (4.8-10.8) K/ul RBC 4.14 L (4.20-5.40) M/uL Hgb 12.4 (12.0-16.0) g/dl Hct 36.1 L (37.0-47.0) % MCV 87.2 (80.0-100.0) fL MCH 30.0 (25.0-34.0) pg MCHC 34.3 (32.0-36.0) g/dL RDW Std Deviation 39.9 (36.4-46.3) fL RDW Coeff of Tiffanie 12.5 (11.5-14.5) % Plt Count 255 (130-400) K/uL MPV 9.2 L (9.4-12.4) fL Immature Gran % (Auto) 0.6 % Neut % (Auto) 89.1 % Lymph % (Auto) 5.6 % [place] % (Auto) 4.5 % Eos % (Auto) 0.0 % Baso % (Auto) 0.2 % Neut # (Auto) 10.77 H (1.40-6.50) K/uL Lymph # (Auto) 0.68 L (1.2-3.4) K/uL [place] # (Auto) 0.55 (0.11-0.59) K/uL Eos # (Auto) 0.00 (0-0.50) K/uL Baso # (Auto) 0.02 (0-0.2) K/uL Immature Gran # (Auto) 0.07 (0.01-0.20) K/uL Sodium 136 (136-145) mmol/L Potassium 4.2 (3.5-5.1) mmol/L Chloride 102 (98-107) mmol/L Carbon Dioxide 27 (21-32) mmol/L Anion Gap 7 (3-11) BUN 12 (6-23) mg/dl Creatinine 0.84 (0.6-1.2) mg/dl Est Cr Clr Drug Dosing 70.1 ml/min Est GFR ( Amer) 88.2 ml/min Est GFR (Non-Af Amer) 76.1 ml/min BUN/Creatinine Ratio 14.3 (10-20) Glucose 144 H (70-99(Fasting)) mg/dl Calcium 9.4 (8.6-10.3) mg/dl Total Bilirubin 0.5 (0.2-1.0) mg/dl AST 132 H (13-39) U/L ALT 107 H (7-52) U/L Alkaline Phosphatase 69 (34-104) U/L Total Protein 6.6 (6.0-8.3) gm/dl Albumin 3.7 (3.4-5.0) gm/dl Globulin 2.9 (2.5-4.0) gm/dl Albumin/Globulin Ratio 1.3 (0.9-2) Lipase (11-82) U/L Urine Color Urine Appearance (Clear) Urine pH (4.5-7.5) Ur Specific [place] (1.000-1.030) Urine Protein (Negative) Urine Glucose (UA) (Negative) Urine Ketones (Negative) Urine Blood (Negative) Urine Nitrite (Negative) Urine Bilirubin (Negative) Urine Urobilinogen (Negative) Ur Leukocyte Esterase (Negative) Urine WBC (Auto) (0-5) /hpf Urine RBC (Auto) (0-4) /hpf U Hyaline Cast (Auto) (0-5) /lpf U Epithel Cells (Auto) (0-5) /lpf Urine Bacteria (Auto) (Negative) SARS-CoV-2 (PCR) NEGATIVE (Negative) 09/19/22 Range/Units 05:46 WBC 10.27 (4.8-10.8) K/ul RBC 3.67 L (4.20-5.40) M/uL Hgb 10.9 L (12.0-16.0) g/dl Hct 33.1 L (37.0-47.0) % MCV 90.2 (80.0-100.0) fL MCH 29.7 (25.0-34.0) pg MCHC 32.9 (32.0-36.0) g/dL RDW Std Deviation 41.8 (36.4-46.3) fL RDW Coeff of Tiffanie 12.6 (11.5-14.5) % Plt Count 210 (130-400) K/uL MPV 9.2 L (9.4-12.4) fL Immature Gran % (Auto) 0.4 % Neut % (Auto) 73.1 % Lymph % (Auto) 16.9 % [place] % (Auto) 8.0 % Eos % (Auto) 1.3 % Baso % (Auto) 0.3 % Neut # (Auto) 7.51 H (1.40-6.50) K/uL Lymph # (Auto) 1.74 (1.2-3.4) K/uL [place] # (Auto) 0.82 H (0.11-0.59) K/uL Eos # (Auto) 0.13 (0-0.50) K/uL Baso # (Auto) 0.03 (0-0.2) K/uL Immature Gran # (Auto) 0.04 (0.01-0.20) K/uL Sodium (136-145) mmol/L Potassium (3.5-5.1) mmol/L Chloride (98-107) mmol/L Carbon Dioxide (21-32) mmol/L Anion Gap (3-11) BUN (6-23) mg/dl Creatinine (0.6-1.2) mg/dl Est Cr Clr Drug Dosing ml/min Est GFR ( Amer) ml/min Est GFR (Non-Af Amer) ml/min BUN/Creatinine Ratio (10-20) Glucose (70-99(Fasting)) mg/dl Calcium (8.6-10.3) mg/dl Total Bilirubin (0.2-1.0) mg/dl AST (13-39) U/L ALT (7-52) U/L Alkaline Phosphatase (34-104) U/L Total Protein (6.0-8.3) gm/dl Albumin (3.4-5.0) gm/dl Globulin (2.5-4.0) gm/dl Albumin/Globulin Ratio (0.9-2) Lipase (11-82) U/L Urine Color Urine Appearance (Clear) Urine pH (4.5-7.5) Ur Specific [place] (1.000-1.030) Urine Protein (Negative) Urine Glucose (UA) (Negative) Urine Ketones (Negative) Urine Blood (Negative) Urine Nitrite (Negative) Urine Bilirubin (Negative) Urine Urobilinogen (Negative) Ur Leukocyte Esterase (Negative) Urine WBC (Auto) (0-5) /hpf Urine RBC (Auto) (0-4) /hpf U Hyaline Cast (Auto) (0-5) /lpf U Epithel Cells (Auto) (0-5) /lpf Urine Bacteria (Auto) (Negative) SARS-CoV-2 (PCR) (Negative)
[2022-09-19] MEDS ORDERED: CALCIUM CARBONATE 500 MG CHEWABLE TAB PO PRN (13:22)
[2022-09-19] MEDS: ENOXAPARIN INJ 40 MG/0.4 ML SYR SQ SCH (14:38)
[2022-09-20] MEDS: oxyCODONE HCL IR 5 MG TAB (IMMEDIATE RELEASE) PO PRN ×2 (01:32→09:12)
[2022-09-20] MEDS: cefOXitin 2,000 MG in DEXTROSE 5% 50 ML IV SCH ×4 (04:59→21:53)
[2022-09-20] MEDS: ACETAMINOPHEN 1,000 MG/100 ML VIAL IV SCH ×2 (05:34→14:41)
[2022-09-20 06:31] LABS: Basophils # (auto) 0.04 K/uL (0-0.2); Basophils % (auto) 0.5 %; Eosinophils # (auto) 0.19 K/uL (0-0.50); Eosinophils % (auto) 2.2 %; Hematocrit (blood only) 32.8 % (37.0-47.0); Hemoglobin 11.1 g/dl (12.0-16.0); Immature Granulocytes # (auto) 0.04 K/uL (0.01-0.20); Immature Granulocytes % (auto) 0.5 %; Lymphocytes # (auto) 1.37 K/uL (1.2-3.4); Lymphocytes % (auto) 15.7 %; Mean Corpuscular Hemoglobin 29.4 pg (25.0-34.0); Mean Corpuscular Hgb Conc 33.8 g/dL (32.0-36.0); Mean Platelet Volume 8.9 fL (9.4-12.4); Monocytes # (auto) 0.81 K/uL (0.11-0.59); Monocytes % (auto) 9.3 %; Neutrophils % (auto) 71.8 %; Platelet Count 257 K/uL (130-400); RDW Coefficient of Variation 12.4 % (11.5-14.5); RDW Standard Deviation 39.8 fL (36.4-46.3); Red Blood Count 3.77 M/uL (4.20-5.40); White Blood Count 8.75 K/ul (4.8-10.8)
[2022-09-20 06:54] LABS: Albumin Globulin Ratio 1.1 (0.9-2); Albumin Level 3.2 gm/dl (3.4-5.0); BUN Creatinine Ratio 13.3 (10-20); Bilirubin,Total 0.8 mg/dl (0.2-1.0); Calcium 8.8 mg/dl (8.6-10.3); Creatinine Clr Calc Pharmacy 78.5 ml/min; Est GFR (African American) 101.1 ml/min; Est GFR (Non-African American) 87.2 ml/min; Globulin 2.8 gm/dl (2.5-4.0); Potassium 3.8 mmol/L (3.5-5.1)
[2022-09-20] MEDS: ENOXAPARIN INJ 40 MG/0.4 ML SYR SQ SCH (09:13)
--- NOTE | 2022-09-20 11:56 | Surgery Progress Note ---
Date of Service September 20, 2022 Assessment & Plan (1) Acute cholecystitis: Plan: pt is a 57 year-old female who was admitted to hospital for acute cholecystitis, pt had laparoscopic cholecystectomy yesterday, POD 2 pt is doing better, less RUQ pain, tolerated diet, continue iv antibiotic, good control S/P -op pain, OOB repeat labs CBC, CMP tomorrow, may D/C home tomorrow, will F/U. 09/20/2022 12:00PM Dr. Camilo, F/U S/P laparoscopic cholecystectomy, POD 3 pt feels better, but pt said she is still have RUQ pain, not ready to go home yet. keep GAYATHRI now. based output is still 65 ml cloud . continue iv antibiotic. po pain meds control pain, will F/U Admission and Anticipated Discharge Date Admission Date: September 17, 2022 Subjective Patient seen. Overall doing okay. She is having more pain than she anticipated. It is different pain than she had preoperatively however. She is tolerating clear liquids. 09/19/2022 12:54PM Dr. Camilo F/U S/p laparoscopic cholecystectomy pt feels better, no significant abdominal pain, tolerated diet, no nausea, no vomiting, no fever, GAYATHRI 30ml blood color. 09/20/2022 11:[address] Camilo F/U S/p laparoscopic cholecystectomy POD 3 pt felt some RUQ abdominal pain last night, tolerated diet, no nausea, no vomiting, no fever, GAYATHRI 65ml cloud color. Physical Exam Constitutional: WD/WN, vitals as above Eyes: PERRL, conjunctivae normal, anicteric sclerae Neck: trachea midline, no thyromegaly Respiratory: normal respiratory effort, lungs clear to auscultation Cardiovascular: RRR, no murmur, no edema Gastrointestinal (Abdomen): mild tenderness at RUQ, no rebound pain, no distend, all incisions heal well, no redness, GAYAHTRI intact. BS + Musculoskeletal: no cyanosis or clubbing, extremities motor strength 5/5 Neurologic: patellar DTR's 2+ bilat, sensation intact Psychiatric: A+Ox3, euthymic affect Results & Data Vital Signs (Past 12 Hours) Vital Signs Temp Pulse Resp BP Pulse Ox O2 Del Method 09/20/22 07:15 36.9 C 65 18 125/82 93 Room Air Laboratory Results Abnormal lab results 09/20/22 09/20/22 Range/Units 05:36 05:36 RBC 3.77 L (4.20-5.40) M/uL Hgb 11.1 L (12.0-16.0) g/dl Hct 32.8 L (37.0-47.0) % MPV 8.9 L (9.4-12.4) fL [place] # (Auto) 0.81 H (0.11-0.59) K/uL Sodium 133 L (136-145) mmol/L AST 96 H (13-39) U/L ALT 134 H (7-52) U/L Alkaline Phosphatase 118 H (34-104) U/L Albumin 3.2 L (3.4-5.0) gm/dl
[2022-09-20] MEDS: KETOROLAC 30 MG/ML VIAL IV PRN (20:36)
[2022-09-21] MEDS: cefOXitin 2,000 MG in DEXTROSE 5% 50 ML IV SCH ×2 (04:11→10:09)
[2022-09-21] MEDS: NYSTATIN SUSP 500,000 U/5 ML UDC PO SCH ×2 (08:30→12:24)
[2022-09-21] MEDS: ENOXAPARIN INJ 40 MG/0.4 ML SYR SQ SCH (08:30)
[2022-09-21] MEDS: IBUPROFEN 600 MG TAB PO PRN (10:18)
[2022-09-21] MEDS ORDERED: POLYETHYLENE (MIRALAX) 17 GM PACK PO SCH (12:00)
--- NOTE | 2022-09-21 12:11 | Surgery Progress Note ---
Date of Service September 21, 2022 Assessment & Plan (1) Acute cholecystitis: Plan: pt is a 57 year-old female who was admitted to hospital for acute cholecystitis, pt had laparoscopic cholecystectomy yesterday, POD 2 pt is doing better, less RUQ pain, tolerated diet, continue iv antibiotic, good control S/P -op pain, OOB repeat labs CBC, CMP tomorrow, may D/C home tomorrow, will F/U. 09/20/2022 12:00PM Dr. Camilo, F/U S/P laparoscopic cholecystectomy, POD 3 pt feels better, but pt said she is still have RUQ pain, not ready to go home yet. keep GAYATHRI now. based output is still 65 ml cloud . continue iv antibiotic. po pain meds control pain, will F/U 09/21/2022 12:09PM Dr. Camilo, F/U S/P laparoscopic cholecystectomy, POD 4 pt feels better, pt wants to go home today. pull out GAYATHRI. D/C home today, post-op care instruction was given. Admission and Anticipated Discharge Date Admission Date: September 17, 2022 Subjective Patient seen. Overall doing okay. She is having more pain than she anticipated. It is different pain than she had preoperatively however. She is tolerating clear liquids. 09/19/2022 12:54PM Dr. Camilo F/U S/p laparoscopic cholecystectomy pt feels better, no significant abdominal pain, tolerated diet, no nausea, no vomiting, no fever, GAYATHRI 30ml blood color. 09/20/2022 11:[address] Ton Noyola/Fan S/p laparoscopic cholecystectomy POD 3 pt felt some RUQ abdominal pain last night, tolerated diet, no nausea, no vomiting, no fever, GAYATHRI 65ml cloud color. 09/21/2022 12:[address] Ton Noyola/U S/p laparoscopic cholecystectomy POD 4 pt felt less RUQ abdominal, tolerated diet, no nausea, no vomiting, no fever, GAYATHRI 17ml clear color. Physical Exam Constitutional: WD/WN, vitals as above Eyes: PERRL, conjunctivae normal, anicteric sclerae Neck: trachea midline, no thyromegaly Respiratory: normal respiratory effort, lungs clear to auscultation Cardiovascular: RRR, no murmur, no edema Gastrointestinal (Abdomen): soft, mild tenderness at RUQ, no rebound pain, no distend. all incisions intact, no redness, GAYATHRI intact, Musculoskeletal: no cyanosis or clubbing, extremities motor strength 5/5 Neurologic: patellar DTR's 2+ bilat, sensation intact Psychiatric: A+Ox3, euthymic affect Results & Data Vital Signs (Past 12 Hours) Vital Signs Temp Pulse Resp BP Pulse Ox O2 Del Method 09/21/22 07:30 37.4 C 66 18 144/83 H 96 Room Air Laboratory Results Lab Results 09/17/22 09/17/22 09/17/22 Range/Units 14:00 14:00 14:15 WBC 10.47 (4.8-10.8) K/ul RBC 4.56 (4.20-5.40) M/uL Hgb 13.6 (12.0-16.0) g/dl Hct 39.8 (37.0-47.0) % MCV 87.3 (80.0-100.0) fL MCH 29.8 (25.0-34.0) pg MCHC 34.2 (32.0-36.0) g/dL RDW Std Deviation 39.8 (36.4-46.3) fL RDW Coeff of [place] 12.4 (11.5-14.5) % Plt Count 253 (130-400) K/uL MPV 9.0 L (9.4-12.4) fL Immature Gran % (Auto) 0.4 % Neut % (Auto) 71.4 % Lymph % (Auto) 16.7 % [place] % (Auto) 10.2 % Eos % (Auto) 1.0 % Baso % (Auto) 0.3 % Neut # (Auto) 7.48 H (1.40-6.50) K/uL Lymph # (Auto) 1.75 (1.2-3.4) K/uL [place] # (Auto) 1.07 H (0.11-0.59) K/uL Eos # (Auto) 0.10 (0-0.50) K/uL Baso # (Auto) 0.03 (0-0.2) K/uL Immature Gran # (Auto) 0.04 (0.01-0.20) K/uL Sodium 137 (136-145) mmol/L Potassium 3.5 (3.5-5.1) mmol/L Chloride 104 (98-107) mmol/L Carbon Dioxide 27 (21-32) mmol/L Anion Gap 6 (3-11) BUN 12 (6-23) mg/dl Creatinine 0.71 (0.6-1.2) mg/dl Est Cr Clr Drug Dosing 82.9 ml/min Est GFR ( Amer) 108.1 ml/min Est GFR (Non-Af Amer) 93.2 ml/min BUN/Creatinine Ratio 16.9 (10-20) Glucose 94 (70-99(Fasting)) mg/dl Calcium 9.4 (8.6-10.3) mg/dl Total Bilirubin 0.6 (0.2-1.0) mg/dl AST 19 (13-39) U/L ALT 18 (7-52) U/L Alkaline Phosphatase 79 (34-104) U/L Total Protein 6.9 (6.0-8.3) gm/dl Albumin 3.9 (3.4-5.0) gm/dl Globulin 3.0 (2.5-4.0) gm/dl Albumin/Globulin Ratio 1.3 (0.9-2) Lipase 22 (11-82) U/L Urine Color Dark Yellow Urine Appearance Clear (Clear) Urine pH 6.0 (4.5-7.5) Ur Specific [place] 1.023 (1.000-1.030) Urine Protein Negative (Negative) Urine Glucose (UA) Negative (Negative) Urine Ketones Trace H (Negative) Urine Blood Trace H (Negative) Urine Nitrite Negative (Negative) Urine Bilirubin Negative (Negative) Urine Urobilinogen Negative (Negative) Ur Leukocyte Esterase Negative (Negative) Urine WBC (Auto) 5-10 H (0-5) /hpf Urine RBC (Auto) 5-10 H (0-4) /hpf U Hyaline Cast (Auto) 5-10 H (0-5) /lpf U Epithel Cells (Auto) >30 H (0-5) /lpf Urine Bacteria (Auto) Negative (Negative) SARS-CoV-2 (PCR) (Negative) 09/17/22 09/18/22 09/18/22 Range/Units 15:27 05:47 05:47 WBC 12.09 H (4.8-10.8) K/ul RBC 4.14 L (4.20-5.40) M/uL Hgb 12.4 (12.0-16.0) g/dl Hct 36.1 L (37.0-47.0) % MCV 87.2 (80.0-100.0) fL MCH 30.0 (25.0-34.0) pg MCHC 34.3 (32.0-36.0) g/dL RDW Std Deviation 39.9 (36.4-46.3) fL RDW Coeff of [place] 12.5 (11.5-14.5) % Plt Count 255 (130-400) K/uL MPV 9.2 L (9.4-12.4) fL Immature Gran % (Auto) 0.6 % Neut % (Auto) 89.1 % Lymph % (Auto) 5.6 % [place] % (Auto) 4.5 % Eos % (Auto) 0.0 % Baso % (Auto) 0.2 % Neut # (Auto) 10.77 H (1.40-6.50) K/uL Lymph # (Auto) 0.68 L (1.2-3.4) K/uL [place] # (Auto) 0.55 (0.11-0.59) K/uL Eos # (Auto) 0.00 (0-0.50) K/uL Baso # (Auto) 0.02 (0-0.2) K/uL Immature Gran # (Auto) 0.07 (0.01-0.20) K/uL Sodium 136 (136-145) mmol/L Potassium 4.2 (3.5-5.1) mmol/L Chloride 102 (98-107) mmol/L Carbon Dioxide 27 (21-32) mmol/L Anion Gap 7 (3-11) BUN 12 (6-23) mg/dl Creatinine 0.84 (0.6-1.2) mg/dl Est Cr Clr Drug Dosing 70.1 ml/min Est GFR ( Amer) 88.2 ml/min Est GFR (Non-Af Amer) 76.1 ml/min BUN/Creatinine Ratio 14.3 (10-20) Glucose 144 H (70-99(Fasting)) mg/dl Calcium 9.4 (8.6-10.3) mg/dl Total Bilirubin 0.5 (0.2-1.0) mg/dl AST 132 H (13-39) U/L ALT 107 H (7-52) U/L Alkaline Phosphatase 69 (34-104) U/L Total Protein 6.6 (6.0-8.3) gm/dl Albumin 3.7 (3.4-5.0) gm/dl Globulin 2.9 (2.5-4.0) gm/dl Albumin/Globulin Ratio 1.3 (0.9-2) Lipase (11-82) U/L Urine Color Urine Appearance (Clear) Urine pH (4.5-7.5) Ur Specific [place] (1.000-1.030) Urine Protein (Negative) Urine Glucose (UA) (Negative) Urine Ketones (Negative) Urine Blood (Negative) Urine Nitrite (Negative) Urine Bilirubin (Negative) Urine Urobilinogen (Negative) Ur Leukocyte Esterase (Negative) Urine WBC (Auto) (0-5) /hpf Urine RBC (Auto) (0-4) /hpf U Hyaline Cast (Auto) (0-5) /lpf U Epithel Cells (Auto) (0-5) /lpf Urine Bacteria (Auto) (Negative) SARS-CoV-2 (PCR) NEGATIVE (Negative) 09/19/22 09/20/22 09/20/22 Range/Units 05:46 05:36 05:36 WBC 10.27 8.75 (4.8-10.8) K/ul RBC 3.67 L 3.77 L (4.20-5.40) M/uL Hgb 10.9 L 11.1 L (12.0-16.0) g/dl Hct 33.1 L 32.8 L (37.0-47.0) % MCV 90.2 87.0 (80.0-100.0) fL MCH 29.7 29.4 (25.0-34.0) pg MCHC 32.9 33.8 (32.0-36.0) g/dL RDW Std Deviation 41.8 39.8 (36.4-46.3) fL RDW Coeff of [place]anie 12.6 12.4 (11.5-14.5) % Plt Count 210 257 (130-400) K/uL MPV 9.2 L 8.9 L (9.4-12.4) fL Immature Gran % (Auto) 0.4 0.5 % Neut % (Auto) 73.1 71.8 % Lymph % (Auto) 16.9 15.7 % [place] % (Auto) 8.0 9.3 % Eos % (Auto) 1.3 2.2 % Baso % (Auto) 0.3 0.5 % Neut # (Auto) 7.51 H 6.30 (1.40-6.50) K/uL Lymph # (Auto) 1.74 1.37 (1.2-3.4) K/uL [place] # (Auto) 0.82 H 0.81 H (0.11-0.59) K/uL Eos # (Auto) 0.13 0.19 (0-0.50) K/uL Baso # (Auto) 0.03 0.04 (0-0.2) K/uL Immature Gran # (Auto) 0.04 0.04 (0.01-0.20) K/uL Sodium 133 L (136-145) mmol/L Potassium 3.8 (3.5-5.1) mmol/L Chloride 101 (98-107) mmol/L Carbon Dioxide 28 (21-32) mmol/L Anion Gap 4 (3-11) BUN 10 (6-23) mg/dl Creatinine 0.75 (0.6-1.2) mg/dl Est Cr Clr Drug Dosing 78.5 ml/min Est GFR ( Amer) 101.1 ml/min Est GFR (Non-Af Amer) 87.2 ml/min BUN/Creatinine Ratio 13.3 (10-20) Glucose 90 (70-99(Fasting)) mg/dl Calcium 8.8 (8.6-10.3) mg/dl Total Bilirubin 0.8 (0.2-1.0) mg/dl AST 96 H (13-39) U/L ALT 134 H (7-52) U/L Alkaline Phosphatase 118 H (34-104) U/L Total Protein 6.0 (6.0-8.3) gm/dl Albumin 3.2 L (3.4-5.0) gm/dl Globulin 2.8 (2.5-4.0) gm/dl Albumin/Globulin Ratio 1.1 (0.9-2) Lipase (11-82) U/L Urine Color Urine Appearance (Clear) Urine pH (4.5-7.5) Ur Specific [place] (1.000-1.030) Urine Protein (Negative) Urine Glucose (UA) (Negative) Urine Ketones (Negative) Urine Blood (Negative) Urine Nitrite (Negative) Urine Bilirubin (Negative) Urine Urobilinogen (Negative) Ur Leukocyte Esterase (Negative) Urine WBC (Auto) (0-5) /hpf Urine RBC (Auto) (0-4) /hpf U Hyaline Cast (Auto) (0-5) /lpf U Epithel Cells (Auto) (0-5) /lpf Urine Bacteria (Auto) (Negative) SARS-CoV-2 (PCR) (Negative)
[2022-09-21] MEDS ORDERED: NYSTATIN SUSP 500,000 U/5 ML UDC PO SCH (13:30)
== END 2022-09-21 13:53 | disposition home or self-care (01) ==
LOC: ED 13:26 → 3E 16:00 → OR 16:00
DX: K80.12 Calculus of gallbladder with acute and chronic cholecystitis without obstruction